=== PATIENT | female | born 1980 | race Caucasian/White ===

== ENCOUNTER 2024-08-29 00:25 | Emergency (ER) | payer MEDICAID, SELFPAY ==
[2024-08-29 00:26] VITALS: BMI 28.3
[2024-08-29 00:46] VITALS: BP 127/85; PULSE 124; RESP 19; TEMP 36.7; O2SAT 97
[2024-08-29] MEDS: DEXAMETHASONE SOD PHOS INJ 10 MG/ML VIAL PO (01:34)
--- NOTE | 2024-08-29 03:42 | EDNOTE_ITS ---
ED Asthma RME/HPI General Chief Complaint: Shortness of Breath/Dyspnea Stated Complaint: COUGHING, SOB Time Seen by Provider: 08/29/24 01:12 Arrival date/time: 08/29/24 00:25 43F with history of asthma and drug use presents to ED with 1 day of cough and SOB because she ran out of her inhaler. Limitations: no limitations Related Data Home Medications ?Medication ?Instructions ?Recorded ?Confirmed albuterol sulfate 90 mcg/actuation 2 puff inhalation Q6H PRN 12/23/19 02/09/22 aerosol inhaler Shortness Of Breath Previous Rx's ?Medication ?Instructions ?Recorded cyclobenzaprine 10 mg tablet 10 mg PO Q8H #20 tabs 12/23/19 oxycodone-acetaminophen 5 mg-325 1 tab PO TID PRN pain #20 tabs 02/10/21 mg tablet (Percocet) sulfamethoxazole 800 1 tab PO BID #14 tabs 02/10/21 mg-trimethoprim 160 mg tablet (Bactrim DS) hydrocodone 5 mg-acetaminophen 325 1 tab PO BID PRN pain #10 tabs 02/14/21 mg tablet naproxen 500 mg tablet (Naprosyn) 500 mg PO BID PRN pain #30 tabs 11/13/21 doxycycline hyclate 150 mg tablet 150 mg PO BID #20 tabs 08/05/22 albuterol sulfate 90 mcg/actuation 2 puff inhalation Q6H PRN 08/29/24 aerosol inhaler (Ventolin HFA) shortness of breath or wheezing #8.5 grams prednisone 20 mg tablet 20 mg PO BID 3 days #6 tabs 08/29/24 Allergies Allergy/AdvReac Type Severity Reaction Status Date / Time No Known Allergies Allergy Verified 02/08/22 20:38 Review of Systems Review of Systems Systems Reviewed: All systems reviewed, normal except as documented Constitutional Constitutional: Reports system reviewed and no additional complaints, except as documented, Denies fever(s) and Denies headache(s) ENT Ears, Nose, Mouth, and Throat: Denies disequilibrium and Denies headache(s) Cardiovascular Cardiovascular: Reports system reviewed and no additional complaints, except as documented, Denies chest pain and Reports dyspnea Respiratory Respiratory: Reports system reviewed and no additional complaints, except as documented, Reports as per HPI, Reports cough and Reports dyspnea Gastrointestinal Gastrointestinal: Reports system reviewed and no additional complaints, except as documented, Denies abdominal pain, Denies nausea and Denies vomiting Neurologic Neurologic: Reports system reviewed and no additional complaints, except as documented, Denies confusion, Denies disequilibrium and Denies headache(s) Psychiatric Psychiatric: Denies confusion Past Medical History Past Medical History CARDIAC: Negative Cardiac Disorders or Congestive Heart Failure RESPIRATORY: Positive Asthma; Negative Chronic Obstructive Pulmonary Disease (COPD) GENITOURINARY: Negative Renal Disease ENDOCRINE: Negative Diabetes Mellitus Type 1 or Diabetes Mellitus Type 2 HEMATOLOGIC: Negative Sickle Cell Disease Surgical History SURGICAL: Positive Section Social History SMOKING STATUS: Current every day smoker ED Exam General Limitations: Present no limitations General appearance: Present alert and in no apparent distress Head Head exam: Present atraumatic Eye Eye exam: Present normal appearance, PERRL and EOMI ENT ENT exam: Present normal exam, normal oropharynx and mucous membranes moist Neck Neck exam: Present normal inspection, full ROM and trachea midline Chest Chest inspection: Present normal inspection and symmetric chest wall rise Respiratory Respiratory exam: Present prolonged expiratory phase Cardiovascular Cardiovascular exam: Present regular rate, normal rhythm and normal heart sounds Abdominal Exam Abdominal exam: Present soft and normal bowel sounds Extremities Exam Extremities exam: Present normal inspection and full ROM Back Exam Back exam: Present normal inspection and full ROM Neurological Exam Neurological exam: Present alert, oriented X3 and CN II-XII intact Psychiatric Psychiatric exam: Present normal affect and normal mood Skin Skin exam: Present warm, dry, intact and normal color Course Quality Measures none Orders Category Date Time Status Bedside COVID-19 Antigen Test NOW Care 08/29/24 00:26 Completed Bedside Influenza A&B Antigen Test NOW Care 08/29/24 00:26 Completed Dexamethasone Inj [Decadron Inj] Med 08/29/24 01:13 Discontinued 10 mg PO X1 ONE Vital Signs Vital signs: Vital Signs Temperature 98.1 F 08/29/24 00:46 Pulse Rate 124 H 08/29/24 00:46 Respiratory Rate 19 08/29/24 00:46 Blood Pressure 127/85 H 08/29/24 00:46 Pulse Oximetry (%) 97 08/29/24 00:46 Oxygen Delivery Method Room Air 08/29/24 00:46 Asthma MDM Narrative MDM Narrative:: 43F with history of asthma and drug use presents to ED with 1 day of cough and SOB because she ran out of her inhaler. Physical exam reveals clear ENT, but restricted lung airflow. No wheezing. Patient is afebrile, calm, and alert. Steroids relieved symptoms. Meds/inhaler prescribed. Patient data External records reviewed:: [facility] Clinical information provided by:: patient Social determinants that could affect healthcare access:: substance use Patient has the following chronic illnesses:: drug use How is presenting disease/condition affected by chronic disease/condition?: caused by Evaluation data The following diagnostics were reviewed and interpreted by me:: other (specify) (none) Lab and/or radiology exams considered but not ordered:: not ordered Interpretation Summary: n/a Medications / Prescriptions Medications or Prescriptions considered but not ordered:: ordered Medication administrations:: Medication Administration History Discontinued Medications Dexamethasone Sodium Phosphate (Dexamethasone Sod Phos Inj 10 Mg/Ml Vial) 10 mg PO X1 ONE Stop: 08/29/24 01:14 Last Admin: 08/29/24 01:34 Dose: 10 mg Documented By: CVL Consultations Consultation(s) initiated? (list below): No Diagnosis Differential diagnosis asthma: Acute exacerbation, Status asthmaticus, Acute asthmatic bronchitis, PE, Pneumonia, COPD exacerbation, Pulmonary edema systolic, Pulmonary edema dystolic, ARDS, Pneumothorax and Foreign body in trachea Most likely diagnosis given after review of the tests above:: asthma exacerbation Admission Indicated Admission indicated?: not indicated Admission Request Was there a request for admission?: No Disposition Plan Disposition Plan: Discharge Discharge Attestation Discharge Attestation: The patient and all family members were given an opportunity to ask questions and understood the discharge instructions. Discharge instructions specifically effects, indications for sooner follow up or return to the emergency department, and the expected course of current diagnosis. Patient condition: Stable Discharge Plan Plan Patient Disposition: HOME (Self Care) Disposition Comment: Stable Prescriptions/Referrals Prescriptions/Med Rec: New prednisone 20 mg tablet 20 mg PO BID 3 Days Qty: 6 0RF albuterol sulfate [Ventolin HFA] 90 mcg/actuation HFA aerosol inhaler 2 puff inhalation Q6H PRN (Reason: shortness of breath or wheezing) Qty: 8.5 3RF No Action albuterol sulfate 90 mcg/actuation HFA aerosol inhaler 2 puff IH Q6H PRN (Reason: Shortness Of Breath) Patient Comments: not taking cyclobenzaprine 10 mg tablet 10 mg PO Q8H Qty: 20 0RF Patient Comments: not taking oxycodone-acetaminophen [Percocet] 5-325 mg tablet 1 tab PO TID MDD 4 g APAP PRN (Reason: pain) Qty: 20 0RF Patient Comments: not taking sulfamethoxazole-trimethoprim [Bactrim DS] 800-160 mg tablet 1 tab PO BID Qty: 14 0RF Patient Comments: not taking hydrocodone-acetaminophen 5-325 mg tablet 1 tab PO BID MDD 10 PRN (Reason: pain) Qty: 10 0RF Patient Comments: not taking naproxen [Naprosyn] 500 mg tablet 500 mg PO BID PRN (Reason: pain) Qty: 30 0RF Patient Comments: not taking doxycycline hyclate 150 mg tablet 150 mg PO BID Qty: 20 0RF Referrals: Candice Short FNP [Primary Care Provider] - In 1 week Problem List Clinical Impression: Asthma with exacerbation Patient/Caregiver Discharge Instructions Additional Instructions: Please follow-up with PCP within 24-48 hours and return immediately if symptoms worsen. Print Language: Lithuanian Stand Alone Forms: Patient Portal Info Letter ROBBY/MARION Supervising Physician ROBBY/MARION Supervising Physician: Dr. Chacon
[2024-08-29 03:43] VITALS: BP 110/65; PULSE 88; RESP 18; TEMP 36.4; O2SAT 97
== END 2024-08-29 03:43 | disposition home or self-care (01) ==
PROVIDERS: Emergency Provider Emergency Medicine; PCP Nurse Practitioner Family
DX: J45.901 Unspecified asthma with (acute) exacerbation (principal); F17.210 Nicotine dependence, cigarettes, uncomplicated
CPT/HCPCS: 87400; 87811; 99283; J1100

== ENCOUNTER 2025-04-28 17:40 | Emergency (ER) | payer MEDICAID, SELFPAY ==
[2025-04-28 17:42] VITALS: BMI 30.2
--- NOTE | 2025-04-28 18:36 | PD.EDFMALE ---
ED Female Urogenital RME/HPI General Chief complaint: Urogenital-Female Stated complaint: BARTHOLIN CYST IN VAGINAL AREA, SINCE YESTERDAY Time Seen by Provider: 04/28/25 18:32 Arrival date/time: 04/28/25 17:40 RME / HPI RME / HPI Narrative: 44-year-old female patient came in for evaluation regarding possible Bartholin cyst abscess. Patient is have a history of Bartholin cyst abscess in the past, at this time according to her, this time has been ongoing for the last 2 to 3 days, initially mild getting worse, with swelling and discomfort. Denies any fever denies any other complaints. No medications taken prior to arrival. Related Data Home Medications ?Medication ?Instructions ?Recorded ?Confirmed albuterol sulfate 90 mcg/actuation 2 puff inhalation Q6H PRN 12/23/19 02/09/22 aerosol inhaler Shortness Of Breath Previous Rx's ?Medication ?Instructions ?Recorded cyclobenzaprine 10 mg tablet 10 mg PO Q8H #20 tabs 12/23/19 oxycodone-acetaminophen 5 mg-325 1 tab PO TID PRN pain #20 tabs 02/10/21 mg tablet (Percocet) sulfamethoxazole 800 1 tab PO BID #14 tabs 02/10/21 mg-trimethoprim 160 mg tablet (Bactrim DS) hydrocodone 5 mg-acetaminophen 325 1 tab PO BID PRN pain #10 tabs 02/14/21 mg tablet naproxen 500 mg tablet (Naprosyn) 500 mg PO BID PRN pain #30 tabs 11/13/21 doxycycline hyclate 150 mg tablet 150 mg PO BID #20 tabs 08/05/22 albuterol sulfate 90 mcg/actuation 2 puff inhalation Q6H PRN 08/29/24 aerosol inhaler (Ventolin HFA) shortness of breath or wheezing #8.5 grams albuterol sulfate 90 mcg/actuation 2 puff inhalation Q6H PRN 08/29/24 aerosol inhaler (Ventolin HFA) shortness of breath or wheezing #8.5 grams acetaminophen 300 mg-codeine 30 mg 1 tab PO TID PRN pain #20 tabs 04/28/25 tablet doxycycline monohydrate 100 mg 100 mg PO BID #20 caps 04/28/25 capsule fluconazole 150 mg tablet 150 mg PO Q3D 3 doses #3 tabs 04/28/25 Allergies Allergy/AdvReac Type Severity Reaction Status Date / Time No Known Allergies Allergy Verified 04/28/25 17:43 Review of Systems Review of Systems Narrative Review of Systems: Review of system reviewed and within normal limits except mentioned in HPI ED Exam Narrative Physical exam: VITAL SIGNS: Reviewed. GENERAL APPEARANCE: Alert and interactive, follows commands, no acute distress, HEAD AND FACE: Non-traumatic. ENT: PERRL, pink conjunctivitis, eyelid no trauma, Mucous membrane moist. NECK: Supple, nontender, no nuchal rigidity. CHEST: No tenderness, no crepitus, no paradoxical movement, no retractions. LUNGS: Clear, well ventilated, symmetric, no rales, no wheezing, no ronchi, no stridor, good breath sounds bilaterally. HEART: Regular rate, regular rhythm, no murmur, no gallops. ABDOMEN: Soft, positive bowel sounds, nondistended, no guarding, nontender, no rebound, no masses, RECTAL: Deferred. GENITAL: 3 x 3 cm swelling, redness, fluctuant, right inferior wall of the vagina, with tenderness NEUROLOGICAL: Gross motor function intact sensory function intact, Appropriate for age. MUSCULOSKELETAL: low back nontender, full range of motion. EXTREMITIES: Nontender, full range of motion. SKIN: Color pink, dry, no rash, no lacerations, no abrasions, no contusions. LYMPHATICS: Deferred. Course Quality Measures none Orders Category Date Time Status Set Up Suture Tray STAT Care 04/28/25 18:35 Active Doxycycline [Vibramycin] Med 04/28/25 18:35 Discontinued 100 mg PO X1 ONE Ketorolac Inj [Toradol Inj] Med 04/28/25 18:35 Discontinued 30 mg IM X1 ONE Lidocaine 1% 20 ml [Xylocaine 1% 20 ML] Med 04/28/25 18:35 Discontinued 20 ml INFL X1 ONE Vital Signs Vital signs: Vital Signs Temperature 98.4 F 04/28/25 19:22 Pulse Rate 81 04/28/25 19:22 Respiratory Rate 15 04/28/25 19:22 Blood Pressure 114/67 04/28/25 19:22 Pulse Oximetry (%) 99 04/28/25 19:22 Oxygen Delivery Method Room Air 04/28/25 19:22 Urogenital - Female MDM Narrative MDM Narrative:: 44-year-old female patient came in for evaluation regarding possible Bartholin cyst abscess. Patient is have a history of Bartholin cyst abscess in the past, at this time according to her, this time has been ongoing for the last 2 to 3 days, initially mild getting worse, with swelling and discomfort. Denies any fever denies any other complaints. No medications taken prior to arrival. Incision and drainage was done by me see procedure notes Patient was given doxycycline, Toradol Was advised to follow-up closely with [facility] Patient data External records reviewed:: None Clinical information provided by:: patient Social determinants that could affect healthcare access:: none Patient has the following chronic illnesses:: none How is presenting disease/condition affected by chronic disease/condition?: no chronic disease Evaluation data The following diagnostics were reviewed and interpreted by me:: lab results and other (specify) Lab and/or radiology exams considered but not ordered:: None Interpretation Summary: None Medications / Prescriptions Medications or Prescriptions considered but not ordered:: None Medication administrations:: Medication Administration History Discontinued Medications Doxycycline Hyclate (Doxycycline 100 Mg Tablet) 100 mg PO X1 ONE Stop: 04/28/25 18:36 Last Admin: 04/28/25 19:36 Dose: 100 mg Documented By: EF Ketorolac Tromethamine (Ketorolac Inj 60 Mg/2 Ml Vial) 30 mg IM X1 ONE Stop: 04/28/25 18:36 Last Admin: 04/28/25 19:36 Dose: 30 mg Documented By: EF Lidocaine HCl (Lidocaine Hcl 1% 20 Ml Vial) 20 ml INFL X1 ONE Stop: 04/28/25 18:36 Toradol, Doxy, Consultations Consultation(s) initiated? (list below): No Diagnosis Urogenital Female Differential Diagnosis: urinary tract infection and bacterial vaginosis Most likely diagnosis given after review of the tests above:: Infection of the Bartholin cyst, Bartholin cyst abscess Admission Indicated Admission indicated?: not indicated Admission Request Was there a request for admission?: No Disposition Plan Disposition Plan: Discharge Discharge Attestation Discharge Attestation: The patient was given an opportunity to ask questions and understood the discharge instructions. Discharge instructions specifically effects, indications for sooner follow up or return to the emergency department, and the expected course of current diagnosis. Patient condition: Stable Discharge Plan Plan Patient Disposition: HOME (Self Care) Discharge Disposition comment: Stable Prescriptions/Referrals Prescriptions/Med Rec: New doxycycline monohydrate 100 mg capsule 100 mg PO BID Qty: 20 0RF fluconazole 150 mg tablet 150 mg PO Q3D Qty: 3 0RF Rx Instructions: may repeat second dose 72 hrs after first dose if symptoms persist acetaminophen-codeine 300-30 mg tablet 1 tab PO TID PRN (Reason: pain) Qty: 20 0RF No Action albuterol sulfate 90 mcg/actuation HFA aerosol inhaler 2 puff IH Q6H PRN (Reason: Shortness Of Breath) Patient Comments: not taking cyclobenzaprine 10 mg tablet 10 mg PO Q8H Qty: 20 0RF Patient Comments: not taking oxycodone-acetaminophen [Percocet] 5-325 mg tablet 1 tab PO TID MDD 4 g APAP PRN (Reason: pain) Qty: 20 0RF Patient Comments: not taking sulfamethoxazole-trimethoprim [Bactrim DS] 800-160 mg tablet 1 tab PO BID Qty: 14 0RF Patient Comments: not taking hydrocodone-acetaminophen 5-325 mg tablet 1 tab PO BID MDD 10 PRN (Reason: pain) Qty: 10 0RF Patient Comments: not taking naproxen [Naprosyn] 500 mg tablet 500 mg PO BID PRN (Reason: pain) Qty: 30 0RF Patient Comments: not taking doxycycline hyclate 150 mg tablet 150 mg PO BID Qty: 20 0RF albuterol sulfate [Ventolin HFA] 90 mcg/actuation HFA aerosol inhaler 2 puff inhalation Q6H PRN (Reason: shortness of breath or wheezing) Qty: 8.5 3RF albuterol sulfate [Ventolin HFA] 90 mcg/actuation HFA aerosol inhaler 2 puff inhalation Q6H PRN (Reason: shortness of breath or wheezing) Qty: 8.5 0RF Referrals: No Primary/Family,Physician [Primary Care Provider] - In 1 week Problem List Clinical Impression: Infected cyst of Bartholin gland duct Patient/Caregiver Discharge Instructions Discharge Activity: activity as tolerated Education Materials: ED Bartholins Cyst IandD Additional Instructions: Thank you for the opportunity for serving you today. You are stable for discharged . You are advised to: Follow-up with your PCP in 1 to 2 days and as per referral to [facility] Return to ED for worsening of symptoms Increase oral fluids Take medication as prescribed Print Language: Pashto Stand Alone Forms: [employer] Info., Patient Portal Info Letter PA/INTERNAL REVENUE AGENT Supervising Physician PA/INTERNAL REVENUE AGENT Supervising Physician: MD Jenny
[2025-04-28 19:22] VITALS: BP 114/67; PULSE 81; RESP 15; TEMP 36.9; O2SAT 99
[2025-04-28] MEDS: DOXYCYCLINE 100 MG TABLET PO (19:36)
[2025-04-28] MEDS: KETOROLAC INJ 60 MG/2 ML VIAL 30 MG IM (19:36)
[2025-04-28] MEDS: LIDOCAINE HCL 1% 20 ML VIAL INFL (20:11)
--- NOTE | 2025-05-18 11:25 | PD.EDADDENDU ---
Emergency Room Addendum Addendum Narrative: Abscess area prep and drape aseptically Local infiltration with lidocaine 1% without EPI around the abscess 1 cm incision directed over the abscess Loculation freed using allan forceps Abscess squeeze out Iodoform packing Patient tolerated the procedure well Sterile dressing done
== END 2025-04-28 20:17 | disposition home or self-care (01) ==
PROVIDERS: Emergency Provider Emergency Medicine
DX: N75.0 Cyst of Bartholin's gland (principal)
CPT/HCPCS: 56420; 96372; 99283; J1885; J3490; A9270

== ENCOUNTER 2025-04-29 19:47 | Emergency (ER) | payer MEDICAID, SELFPAY ==
[2025-04-29 19:48] VITALS: BP 108/74; PULSE 87; RESP 20; TEMP 37; O2SAT 100
[2025-04-29 19:50] VITALS: BMI 25.0
--- NOTE | 2025-04-29 20:24 | PD.EDSKIN ---
ED Skin Abcess FB-RME/HPI General Chief complaint: Skin/Abscess/Foreign Body Stated complaint: BARTHOLIN SCYST Time Seen by Provider: 04/29/25 20:23 Arrival date/time: 04/29/25 19:47 RME / HPI RME / HPI narrative: 44-year-old female patient came in for evaluation regarding request for repacking of her abscess sp I and D. Patient was seen yesterday for Bartholin cyst abscess, incision and drainage was done, and packing was done earlier today the packing fell off. Patient told me that patient is still having swelling. Denies any fever. Currently taking doxycycline. Related Data Home Medications ?Medication ?Instructions ?Recorded ?Confirmed albuterol sulfate 90 mcg/actuation 2 puff inhalation Q6H PRN 12/23/19 02/09/22 aerosol inhaler Shortness Of Breath Previous Rx's ?Medication ?Instructions ?Recorded cyclobenzaprine 10 mg tablet 10 mg PO Q8H #20 tabs 12/23/19 oxycodone-acetaminophen 5 mg-325 1 tab PO TID PRN pain #20 tabs 02/10/21 mg tablet (Percocet) sulfamethoxazole 800 1 tab PO BID #14 tabs 02/10/21 mg-trimethoprim 160 mg tablet (Bactrim DS) hydrocodone 5 mg-acetaminophen 325 1 tab PO BID PRN pain #10 tabs 02/14/21 mg tablet naproxen 500 mg tablet (Naprosyn) 500 mg PO BID PRN pain #30 tabs 11/13/21 doxycycline hyclate 150 mg tablet 150 mg PO BID #20 tabs 08/05/22 albuterol sulfate 90 mcg/actuation 2 puff inhalation Q6H PRN 08/29/24 aerosol inhaler (Ventolin HFA) shortness of breath or wheezing #8.5 grams albuterol sulfate 90 mcg/actuation 2 puff inhalation Q6H PRN 08/29/24 aerosol inhaler (Ventolin HFA) shortness of breath or wheezing #8.5 grams acetaminophen 300 mg-codeine 30 mg 1 tab PO TID PRN pain #20 tabs 04/28/25 tablet doxycycline monohydrate 100 mg 100 mg PO BID #20 caps 04/28/25 capsule fluconazole 150 mg tablet 150 mg PO Q3D 3 doses #3 tabs 04/28/25 Allergies Allergy/AdvReac Type Severity Reaction Status Date / Time No Known Allergies Allergy Verified 04/28/25 17:43 Review of Systems Review of Systems Narrative Review of Systems: Review of system reviewed and within normal limits except mentioned in HPI ED Exam Narrative Physical exam: VITAL SIGNS: Reviewed. GENERAL APPEARANCE: Alert and interactive, follows commands, no acute distress, HEAD AND FACE: Non-traumatic. ENT: PERRL, pink conjunctivitis, eyelid no trauma, Mucous membrane moist. NECK: Supple, nontender, no nuchal rigidity. CHEST: No tenderness, no crepitus, no paradoxical movement, no retractions. LUNGS: Clear, well ventilated, symmetric, no rales, no wheezing, no ronchi, no stridor, good breath sounds bilaterally. HEART: Regular rate, regular rhythm, no murmur, no gallops. ABDOMEN: Soft, positive bowel sounds, nondistended, no guarding, nontender, no rebound, no masses, RECTAL: Deferred. GENITAL: Status post I&D, right inferior vaginal wall with mild swelling NEUROLOGICAL: Gross motor function intact sensory function intact, Appropriate for age. MUSCULOSKELETAL: low back nontender, full range of motion. EXTREMITIES: Nontender, full range of motion. SKIN: Color pink, dry, no rash, no lacerations, no abrasions, no contusions. LYMPHATICS: Deferred. Course Quality Measures none Orders Category Date Time Status Set Up Suture Tray STAT Care 04/29/25 20:30 Active Ketorolac Inj [Toradol Inj] Med 04/29/25 20:30 Discontinued 30 mg IM X1 ONE Lidocaine 1% 20 ml [Xylocaine 1% 20 ML] Med 04/29/25 20:45 Discontinued 20 ml INFL X1 ONE Vital Signs Vital signs: Vital Signs Temperature 98.6 F 04/29/25 19:48 Pulse Rate 87 04/29/25 19:48 Respiratory Rate 20 04/29/25 19:48 Blood Pressure 108/74 04/29/25 19:48 Pulse Oximetry (%) 100 04/29/25 19:48 Oxygen Delivery Method Room Air 04/29/25 19:48 Skin / Abscess / Foreign Body MDM Narrative MDM Narrative:: 44-year-old female patient came in for evaluation regarding request for repacking of her abscess sp I and D. Patient was seen yesterday for Bartholin cyst abscess, incision and drainage was done, and packing was done earlier today the packing fell off. Patient told me that patient is still having swelling. Denies any fever. Currently taking doxycycline. Wound check was done by me and repacking was done by me using plain iodoform packing. Patient tolerated the procedure well. Patient data External records reviewed:: None Clinical information provided by:: patient Social determinants that could affect healthcare access:: none Patient has the following chronic illnesses:: None How is presenting disease/condition affected by chronic disease/condition?: no chronic disease Evaluation data The following diagnostics were reviewed and interpreted by me:: other (specify) Lab and/or radiology exams considered but not ordered:: None Interpretation Summary: None Medications / Prescriptions Medications or Prescriptions considered but not ordered:: None Medication administrations:: Medication Administration History Discontinued Medications Ketorolac Tromethamine (Ketorolac Inj 60 Mg/2 Ml Vial) 30 mg IM X1 ONE Stop: 04/29/25 20:31 Lidocaine HCl (Lidocaine Hcl 1% 20 Ml Vial) 20 ml INFL X1 ONE Stop: 04/29/25 20:46 Toradol IM Consultations Consultation(s) initiated? (list below): No Diagnosis Skin/Abscess Differential Diagnosis: other (Wound check, status post I&D Bartholin cyst abscess, repacking wound) Most likely diagnosis given after review of the tests above:: Wound check, status post I&D Bartholin cyst abscess, repacking wound Admission Indicated Admission indicated?: not indicated Explain why admission is indicated or not indicated:: Discharge Admission Request Was there a request for admission?: No Disposition Plan Disposition Plan: Discharge Discharge Attestation Discharge Attestation: The patient given an opportunity to ask questions and understood the discharge instructions. Discharge instructions specifically effects, indications for sooner follow up or return to the emergency department, and the expected course of current diagnosis. Patient condition: Stable Discharge Plan Plan Patient Disposition: HOME (Self Care) Discharge Disposition comment: Stable Prescriptions/Referrals Prescriptions/Med Rec: No Action albuterol sulfate 90 mcg/actuation HFA aerosol inhaler 2 puff IH Q6H PRN (Reason: Shortness Of Breath) Patient Comments: not taking cyclobenzaprine 10 mg tablet 10 mg PO Q8H Qty: 20 0RF Patient Comments: not taking oxycodone-acetaminophen [Percocet] 5-325 mg tablet 1 tab PO TID MDD 4 g APAP PRN (Reason: pain) Qty: 20 0RF Patient Comments: not taking sulfamethoxazole-trimethoprim [Bactrim DS] 800-160 mg tablet 1 tab PO BID Qty: 14 0RF Patient Comments: not taking hydrocodone-acetaminophen 5-325 mg tablet 1 tab PO BID MDD 10 PRN (Reason: pain) Qty: 10 0RF Patient Comments: not taking naproxen [Naprosyn] 500 mg tablet 500 mg PO BID PRN (Reason: pain) Qty: 30 0RF Patient Comments: not taking doxycycline monohydrate 100 mg capsule 100 mg PO BID Qty: 20 0RF fluconazole 150 mg tablet 150 mg PO Q3D Qty: 3 0RF Rx Instructions: may repeat second dose 72 hrs after first dose if symptoms persist acetaminophen-codeine 300-30 mg tablet 1 tab PO TID PRN (Reason: pain) Qty: 20 0RF doxycycline hyclate 150 mg tablet 150 mg PO BID Qty: 20 0RF albuterol sulfate [Ventolin HFA] 90 mcg/actuation HFA aerosol inhaler 2 puff inhalation Q6H PRN (Reason: shortness of breath or wheezing) Qty: 8.5 3RF albuterol sulfate [Ventolin HFA] 90 mcg/actuation HFA aerosol inhaler 2 puff inhalation Q6H PRN (Reason: shortness of breath or wheezing) Qty: 8.5 0RF Referrals: No Primary/Family,Physician [Primary Care Provider] - In 1 week Problem List Clinical Impression: Wound check, abscess, Infected cyst of Bartholin gland duct Patient/Caregiver Discharge Instructions Discharge Activity: activity as tolerated Education Materials: ED Wound Check (Infection) Additional Instructions: Thank you for the opportunity for serving you today. You are stable for discharged . You are advised to: Follow-up with your WEB COMMUNICATIONS SPECIALIST as instructed Return to ED for worsening of symptoms Increase oral fluids Take medication as prescribed yesterday Mobilized the packing by pulling 1 cm every day for the next 5 days and totally remove after that Print Language: Rw[place]an Stand Alone Forms: Andreea Award Info., Patient Portal Info Letter PA/STEEL ANALYST Supervising Physician PA/STEEL ANALYST Supervising Physician: MD Jenny
[2025-04-29] MEDS: LIDOCAINE HCL 1% 20 ML VIAL INFL (22:12)
[2025-04-29] MEDS: KETOROLAC INJ 60 MG/2 ML VIAL 30 MG IM (22:12)
== END 2025-04-29 22:43 | disposition home or self-care (01) ==
PROVIDERS: Emergency Provider Emergency Medicine
DX: N75.0 Cyst of Bartholin's gland (principal)
CPT/HCPCS: 96372; 99283; J1885; J3490

== ENCOUNTER 2025-09-14 21:52 | Emergency (ER) | payer MEDICAID, SELFPAY ==
[2025-09-14 21:54] VITALS: BMI 30.4
[2025-09-14 23:20] VITALS: BP 121/83; PULSE 92; RESP 20; TEMP 36.7; O2SAT 98
--- NOTE | 2025-09-15 00:01 | EDNOTE_ITS ---
ED Skin Abcess FB-RME/HPI General Chief complaint: Skin/Abscess/Foreign Body Stated complaint: CYST Time Seen by Provider: 09/14/25 23:31 Arrival date/time: 09/14/25 21:52 44-year-old female reports with complaints of Bartholin gland cyst x 2 days. Patient states that she was evaluated by primary care provider who advised her that they do not harmony Bartholin gland cyst and she does not have an TRANSPORTATION SALES CONSULTANT so she reports the emergency room with pain and swelling. Patient denies any fever or chills nausea or vomiting. Patient states that she has tried [id number] medications with no improvement of pain Limitations: no limitations Related Data Home Medications ?Medication ?Instructions ?Recorded ?Confirmed albuterol sulfate 90 mcg/actuation 2 puff inhalation Q 6H PRN 12/23/19 02/09/22 aerosol inhaler Shortness Of Breath Previous Rx's ?Medication ?Instructions ?Recorded cyclobenzaprine 10 mg tablet 10 mg PO Q8H #20 tabs 10/01 oxycodone-acetaminophen 5 mg-325 1 tab PO TID PRN pain #20 tabs 02/10/21 mg tablet (Percocet) sulfamethoxazole 800 1 tab PO BID #14 tabs mg-trimethoprim 160 mg tablet (Bactrim DS) hydrocodone 5 mg-acetaminophen 325 1 tab PO BID PRN pa in #10 tabs 02/14/21 mg tablet naproxen 500 mg tablet (Naprosyn) 500 mg PO BID PRN pa in #30 tabs 11/13/21 doxycycline hyclate 150 mg tablet 150 mg PO BID #20 ta bs 08/05/22 albuterol sulfate 90 mcg/actuation 2 puff inhalation Q 6H PRN 08/29/24 aerosol inhaler (Ventolin HFA) shortness of breath or wheezing #8.5 grams albuterol sulfate 90 mcg/actuation 2 puff inhalation Q 6H PRN 08/29/24 aerosol inhaler (Ventolin HFA) shortness of breath or wheezing #8.5 grams acetaminophen 300 mg-codeine 30 mg 1 tab PO TID PRN pa in #20 tabs 04/28/25 tablet doxycycline monohydrate 100 mg 100 mg PO BID #20 caps 04/28/25 capsule fluconazole 150 mg tablet 150 mg PO Q3D 3 doses #3 tab s 04/28/25 cephalexin 500 mg tablet 500 mg PO Q12H 10 days #20 t abs 09/15/25 fluconazole 150 mg tablet 150 mg PO Q3D 2 doses #2 tab s 09/15/25 oxycodone-acetaminophen 5 mg-325 1 tab PO TID PRN pain #15 tabs 09/15/25 mg tablet (Percocet) Allergies Allergy/AdvReac Type Severity Reaction Status Date / Time No Known Allergies Allergy Verified 09/14/25 21:53 Review of Systems Constitutional Constitutional: Denies chills and Denies fever(s) Genitourinary Genitourinary: Reports other (Bartholin gland cyst) Integumentary/Breasts Skin/Breast: Reports erythema and Reports furuncle Past Medical History Past Medical History CARDIAC: Negative Cardiac Disorders or Congestive Heart Failure RESPIRATORY: Positive Asthma; Negative Chronic Obstructive Pulmonary Disease (COPD) GENITOURINARY: Negative Renal Disease ENDOCRINE: Negative Diabetes Mellitus Type 1 or Diabetes Mellitus Type 2 HEMATOLOGIC: Negative Sickle Cell Disease Surgical History SURGICAL: Positive Section Social History SMOKING STATUS: Current every day smoker ED Exam General Limitations: Present no limitations General appearance: Present alert and in no apparent distress External exam: Present other (3 cm nonfluctuant Bartholin gland cyst right labia diffuse erythema and tenderness no discharge) Neurological Exam Neurological exam: Present alert, oriented X3 and CN II-XII intact Psychiatric Psychiatric exam: Present normal affect and normal mood Skin Skin exam: Present warm, dry, intact and normal color Course Quality Measures none Orders Category Date Time Status 1000 mg IM Med 09/15/25 00:01 Ordered cefTRIAXone [Rocephin] 1,000 mg Lidocaine 1% Pf Vial 5ml [Xylocaine 1% 5 ml] 2.1 ml IM X1 Morphine* Inj Med 09/15/25 00:00 Once 2 mg IM X1 ONE Promethazine Inj [Phenergan Inj] Med 09/15/25 00:00 Once 12.5 mg IM X1 ONE Vital Signs Vital signs: Vital Signs Temperature 98.0 F 09/14/25 23:20 Pulse Rate 92 09/14/25 23:20 Respiratory Rate 20 09/14/25 23:20 Blood Pressure 121/83 09/14/25 23:20 Pulse Oximetry (%) 98 09/14/25 23:20 Oxygen Delivery Method Room Air 09/14/25 23:20 Skin / Abscess / Foreign Body Patient data External records reviewed:: None Clinical information provided by:: patient Social determinants that could affect healthcare access:: none Patient has the following chronic illnesses:: none How is presenting disease/condition affected by chronic disease/condition?: no chronic disease Evaluation data The following diagnostics were reviewed and interpreted by me:: other (specify) (none) Lab and/or radiology exams considered but not ordered:: none Interpretation Summary: n/a Medications / Prescriptions Medications or Prescriptions considered but not ordered:: none Medication administrations:: Rocephin morphine and Phenergan Consultations Consultation(s) initiated? (list below): No Diagnosis Skin/Abscess Differential Diagnosis: abscess of skin or subcutaneous tissue, cellulitis, contact dermatitis and other (Bartholin gland cyst) Most likely diagnosis given after review of the tests above:: Bartholin gland cyst Admission Indicated Admission indicated?: not indicated Admission Request Was there a request for admission?: No Disposition Plan Disposition Plan: Discharge Discharge Attestation Discharge Attestation: The patient and all family members were given an opportunity to ask questions and understood the discharge instructions. Discharge instructions specifically effects, indications for sooner follow up or return to the emergency department, and the expected course of current diagnosis. Patient condition: Stable Discharge Plan Plan Patient Disposition: HOME (Self Care) Prescriptions/Referrals Prescriptions/Med Rec: New oxycodone-acetaminophen [Percocet] 5-325 mg tablet 1 tab PO TID MDD 4g APAP PRN (Reason: pain) Qty: 15 0RF fluconazole 150 mg tablet 150 mg PO Q3D Qty: 2 0RF Rx Instructions: may repeat second dose 72 hrs after first dose if symptoms persist cephalexin 500 mg tablet 500 mg PO Q12H 10 Days Qty: 20 0RF No Action albuterol sulfate 90 mcg/actuation HFA aerosol inhaler 2 puff IH Q6H PRN (Reason: Shortness Of Breath) Patient Comments: not taking cyclobenzaprine 10 mg tablet 10 mg PO Q8H Qty: 20 0RF Patient Comments: not taking oxycodone-acetaminophen [Percocet] 5-325 mg tablet 1 tab PO TID MDD 4 g APAP PRN (Reason: pain) Qty: 20 0RF Patient Comments: not taking sulfamethoxazole-trimethoprim [Bactrim DS] 800-160 mg tablet 1 tab PO BID Qty: 14 0RF Patient Comments: not taking hydrocodone-acetaminophen 5-325 mg tablet 1 tab PO BID MDD 10 PRN (Reason: pain) Qty: 10 0RF Patient Comments: not taking naproxen [Naprosyn] 500 mg tablet 500 mg PO BID PRN (Reason: pain) Qty: 30 0RF Patient Comments: not taking doxycycline monohydrate 100 mg capsule 100 mg PO BID Qty: 20 0RF fluconazole 150 mg tablet 150 mg PO Q3D Qty: 3 0RF Rx Instructions: may repeat second dose 72 hrs after first dose if symptoms persist acetaminophen-codeine 300-30 mg tablet 1 tab PO TID PRN (Reason: pain) Qty: 20 0RF doxycycline hyclate 150 mg tablet 150 mg PO BID Qty: 20 0RF albuterol sulfate [Ventolin HFA] 90 mcg/actuation HFA aerosol inhaler 2 puff inhalation Q6H PRN (Reason: shortness of breath or wheezing) Qty: 8.5 3RF albuterol sulfate [Ventolin HFA] 90 mcg/actuation HFA aerosol inhaler 2 puff inhalation Q6H PRN (Reason: shortness of breath or wheezing) Qty: 8.5 0RF Referrals: Helena Madrigal DO [Physician, TRANSPORTATION SALES CONSULTANT] - 09/16/25 Problem List Clinical Impression: Bartholin gland cyst Patient/Caregiver Discharge Instructions Discharge Activity: activity as tolerated Education Materials: Bartholin Cyst and Abscess Additional Instructions: Take medications as directed and follow-up with the referred M[employer]Y MARKET CLERK for further evaluation and treatment Print Language: Japanese Stand Alone Forms: Andreea Award Info., Patient Portal Info Letter
[2025-09-15] MEDS: MORPHINE SULF INJ 4 MG/ML VIAL 2 MG IM (00:50)
== END 2025-09-15 00:55 | disposition home or self-care (01) ==
LOC: SERX 09-15 00:59
PROVIDERS: Emergency Provider Emergency Medicine; PCP Family Medicine
DX: N75.0 Cyst of Bartholin's gland (principal)
CPT/HCPCS: 96372; 99282; J0696; J2270; J3490

== ENCOUNTER 2025-09-16 02:47 | Observation (INO) | payer MEDICAID, SELFPAY ==
[2025-09-16] VITALS (15 sets, daily range): BP systolic 86–124; BP diastolic 51–83; PULSE 66–111; RESP 14–19; TEMP 36.3–37.8; O2SAT 94–100; BMI 30.4
[2025-09-16] MEDS: KETOROLAC INJ 60 MG/2 ML VIAL IM (04:41)
[2025-09-16] MEDS: LIDOCAINE HCL 1% 20 ML VIAL INFL (04:42)
--- NOTE | 2025-09-16 04:43 | PC.NURSE ---
Pulled lidocaine from [facility] for provider and he withdrew and administered lido during I&D
--- NOTE | 2025-09-16 05:46 | EDNOTE_ITS ---
ED Female Urogenital RME/HPI General Chief complaint: Skin/Abscess/Foreign Body Stated complaint: CYSTS Time Seen by Provider: 09/16/25 03:52 Arrival date/time: 09/16/25 02:47 44F with history of asthma and drug use and recurrent Bartholin cyst presents to ED with continued worsening pain. Patient was here yesterday where no I&D was done and patient was put on Keflex. Patient is still waiting for insurance approval to be referred to OBGYN. Limitations: no limitations Related Data Home Medications ?Medication ?Instructions ?Recorded ?Confirmed albuterol sulfate 90 mcg/actuation 2 puff inhalation Q 6H PRN 12/23/19 02/09/22 aerosol inhaler Shortness Of Breath Previous Rx's ?Medication ?Instructions ?Recorded cyclobenzaprine 10 mg tablet 10 mg PO Q8H #20 tabs 10/01 oxycodone-acetaminophen 5 mg-325 1 tab PO TID PRN pain #20 tabs 02/10/21 mg tablet (Percocet) sulfamethoxazole 800 1 tab PO BID #14 tabs mg-trimethoprim 160 mg tablet (Bactrim DS) hydrocodone 5 mg-acetaminophen 325 1 tab PO BID PRN pa in #10 tabs 02/14/21 mg tablet naproxen 500 mg tablet (Naprosyn) 500 mg PO BID PRN pa in #30 tabs 11/13/21 doxycycline hyclate 150 mg tablet 150 mg PO BID #20 ta bs 08/05/22 albuterol sulfate 90 mcg/actuation 2 puff inhalation Q 6H PRN 08/29/24 aerosol inhaler (Ventolin HFA) shortness of breath or wheezing #8.5 grams albuterol sulfate 90 mcg/actuation 2 puff inhalation Q 6H PRN 08/29/24 aerosol inhaler (Ventolin HFA) shortness of breath or wheezing #8.5 grams acetaminophen 300 mg-codeine 30 mg 1 tab PO TID PRN pa in #20 tabs 04/28/25 tablet doxycycline monohydrate 100 mg 100 mg PO BID #20 caps 04/28/25 capsule fluconazole 150 mg tablet 150 mg PO Q3D 3 doses #3 tab s 04/28/25 cephalexin 500 mg tablet 500 mg PO Q12H 10 days #20 t abs 09/15/25 fluconazole 150 mg tablet 150 mg PO Q3D 2 doses #2 tab s 09/15/25 oxycodone-acetaminophen 5 mg-325 1 tab PO TID PRN pain #15 tabs 09/15/25 mg tablet (Percocet) Allergies Allergy/AdvReac Type Severity Reaction Status Date / Time No Known Allergies Allergy Verified 09/16/25 02:48 Review of Systems Review of Systems Systems Reviewed: All systems reviewed, normal except as documented Genitourinary Genitourinary: Reports as per HPI and Reports other (genital pain) Past Medical History Past Medical History CARDIAC: Negative Cardiac Disorders or Congestive Heart Failure RESPIRATORY: Positive Asthma; Negative Chronic Obstructive Pulmonary Disease (COPD) GENITOURINARY: Negative Renal Disease ENDOCRINE: Negative Diabetes Mellitus Type 1 or Diabetes Mellitus Type 2 HEMATOLOGIC: Negative Sickle Cell Disease Surgical History SURGICAL: Positive Section Social History SMOKING STATUS: Current every day smoker ED Exam General Limitations: Present no limitations General appearance: Present alert and in distress Head Head exam: Present atraumatic Neck Neck exam: Present normal inspection, full ROM and trachea midline Chest Chest inspection: Present normal inspection and symmetric chest wall rise External exam: Present other (R Bartholin's cyst) Neurological Exam Neurological exam: Present alert and oriented X3 Psychiatric Psychiatric exam: Present normal affect and normal mood Skin Skin exam: Present warm, dry, intact and normal color Course Quality Measures none Orders Category Date Time Status Insert IV NOW Care 09/16/25 05:31 Active CBC Stat Lab 09/16/25 05:50 Completed CMP [Comprehensive Metabolic Panel] Stat Lab 09/16/25 05:50 Completed UA, C/S IF [Urinalysis, C/S if Indicated] Stat Lab 09/16/25 08:48 Completed Urine Culture Stat Lab 09/16/25 08:48 Received Diazepam [Valium] Med 09/16/25 05:10 Discontinued 10 mg PO X1 ONE Ketorolac Inj [Toradol Inj] Med 09/16/25 04:03 Discontinued 60 mg IM X1 ONE Lidocaine 1% Vial 20 ml [Xylocaine 1% 20 ML] Med 09/16/25 04:06 Discontinued 20 ml INFL X1 ONE Morphine* Inj Med 09/16/25 05:31 Discontinued 4 mg IV X1 ONE Ondansetron Inj [Zofran Inj] Med 09/16/25 05:31 Discontinued 4 mg IV X1 ONE Vital Signs Vital signs: Vital Signs Temperature 98.6 F 09/16/25 03:31 Pulse Rate 111 H 09/16/25 03:31 Respiratory Rate 18 09/16/25 03:31 Blood Pressure 117/83 09/16/25 03:31 Pulse Oximetry (%) 98 09/16/25 03:31 Oxygen Delivery Method Room Air 09/16/25 03:31 O2 at 98% on RA and WNLs Urogenital - Female MDM Narrative MDM Narrative:: 44F with history of asthma and drug use and recurrent Bartholin cyst presents to ED with continued worsening pain. Patient was here yesterday where no I&D was done and patient was put on Keflex. Patient is still waiting for insurance approval to be referred to OBGYN. Physical exam with Gladys RN, reveals large L Bartholin cyst. Patient is afebrile, alert, but appears to be in pain. Gait is limping. Despite given 20 mL lido, patient is unable to tolerate I&D. Patient states last time, she had to be put under conscious sedation with ketamine. Spoke to Dr. Knowles OB MD who agrees definite surgical intervention may be necessary. However, there is not enough time left on her shift left to do it. She recommends contacting the oncoming OBGYN, Dr. Reid. Care signed out to [facility] pending basic labs, consult to Dr. Reid, and dispo. Patient eventually admitted. Patient data External records reviewed:: [facility] previous records Clinical information provided by:: patient Social determinants that could affect healthcare access:: substance use Patient has the following chronic illnesses:: drug use and asthma How is presenting disease/condition affected by chronic disease/condition?: exacerbated by Evaluation data The following diagnostics were reviewed and interpreted by me:: lab results Lab and/or radiology exams considered but not ordered:: ordered Interpretation Summary: above Medications / Prescriptions Medications or Prescriptions considered but not ordered:: ordered Medication administrations:: Medication Administration History Acetaminophen (Acetaminophen 325 Mg Tablet) 650 mg PO Q6H PRN PRN Reason: Fever >101.5 Stop: 10/16/25 07:44 Hydrocodone Bitart/Acetaminophen (Hydrocodone/Apap 5/325 Tablet) 1 tab PO Q4H PRN PRN Reason: PAIN SCALE 4-6 (Moderate Stop: 09/21/25 07:44 Albuterol (Albuterol Inh 8 Gm) 2 puff INH Q6H PRN PRN Reason: shortness of breath or wheezing Stop: 10/16/25 07:47 Docusate Sodium (Docusate Sod 100 Mg Capsule) 100 mg PO QDAY PRN PRN Reason: CONSTIPATION Stop: 10/16/25 07:44 Piperacillin/Tazobactam/Dextrose (Zosyn) 3.375 gm in 50 mls @ 12.5 mls/hr IV Q8HR [facility]; Protocol Stop: 09/23/25 13:59 Last Admin: 09/16/25 14:56 Dose: 12.5 mls/hr Documented By: GORDO Sodium Chloride (Ns 0.45%) 1,000 mls @ 100 mls/hr IV .Q10H [facility] Stop: 10/16/25 07:47 Last Admin: 09/16/25 07:55 Dose: 100 mls/hr Documented By: Metoclopramide HCl (Metoclopramide Inj 5 Mg/Ml Vial 2 Ml) 10 mg IVP Q6H PRN; Protocol PRN Reason: NAUSEA OR VOMITING Stop: 10/16/25 07:44 Morphine Sulfate (Morphine Sulf Inj 4 Mg/Ml Vial) 4 mg IVP Q2H PRN PRN Reason: PAIN SCALE 7-10 (Severe Stop: 09/21/25 07:44 Last Admin: 09/16/25 14:31 Dose: 4 mg Documented By: Admin: 09/16/25 11:41 Dose: 4 mg Documented By: ANASTACIO Ondansetron HCl (Ondansetron Inj 2 Mg/Ml Inj 2 Ml) 4 mg IVP Q6H PRN; Protocol PRN Reason: NAUSEA OR VOMITING Stop: 10/16/25 07:44 Pantoprazole Sodium (Pantoprazole Inj 40 Mg Vial) 40 mg IVP QDAY [facility] Stop: 10/16/25 08:59 Last Admin: 09/16/25 09:15 Dose: 40 mg Documented By: ANASTACIO Discontinued Medications Diazepam (Diazepam 5 Mg Tablet) 10 mg PO X1 ONE Stop: 09/16/25 05:11 Last Admin: 09/16/25 06:09 Dose: 10 mg Documented By: JONATHAN Piperacillin/Tazobactam/Dextrose (Zosyn) 3.375 gm in 50 mls @ 100 mls/hr IV X1 ONE; Protocol Stop: 09/16/25 08:29 Last Infusion: 09/16/25 09:18 Dose: Infused Documented By: Admin: 09/16/25 08:36 Dose: 100 mls/hr Documented By: SR Ketorolac Tromethamine (Ketorolac Inj 60 Mg/2 Ml Vial) 60 mg IM X1 ONE Stop: 09/16/25 04:04 Last Admin: 09/16/25 04:41 Dose: 60 mg Documented By: EB Lidocaine HCl (Lidocaine Hcl 1% 20 Ml Vial) 20 ml INFL X1 ONE Stop: 09/16/25 04:07 Last Admin: 09/16/25 04:42 Dose: 20 ml Documented By: EB Morphine Sulfate (Morphine Sulf Inj 4 Mg/Ml Vial) 4 mg IV X1 ONE Stop: 09/16/25 05:32 Last Admin: 09/16/25 06:00 Dose: 4 mg Documented By: EB Non-Formulary Medication (Cyclobenzaprine) 10 mg PO Q8H [facility] Stop: 10/16/25 07:59 Last Admin: 09/16/25 09:16 Dose: Not Given Documented By: DB Non-Admin Reason: Discontinued Ondansetron HCl (Ondansetron Inj 2 Mg/Ml Inj 2 Ml) 4 mg IV X1 ONE; Protocol Stop: 09/16/25 05:32 Last Admin: 09/16/25 06:00 Dose: 4 mg Documented By: JONATHAN above Consultations Consultation(s) initiated? (list below): Yes Diagnosis Urogenital Female Differential Diagnosis: urinary tract infection, bacterial vaginosis, trichomoniasis, cervicitis, ovarian cyst, vaginitis, ruptured ovarian cyst, cyst of Bartholin's gland, cystitis and dysmenorrhea Most likely diagnosis given after review of the tests above:: Bartholin's cyst Admission Indicated Admission indicated?: indicated Admission Request Was there a request for admission?: Yes Admission Attestation Admission request attestation: Discussed case with [] from Hospitalist service regarding admission. Discussed patients ED course, exam findings, labs, and radiology results. The Hospitalist [agrees,declines] to accept the patient for admission. See addendum. Disposition Plan Disposition Plan: Admit Discharge Plan Plan Patient Disposition: Other Care w/in Hosp ([facility]) Discharge Disposition comment: Stable Problem List Clinical Impression: Bartholin gland cyst
[2025-09-16] MEDS: ONDANSETRON INJ 2 MG/ML INJ 2 ML 4 MG IV (06:00)
[2025-09-16] MEDS: MORPHINE SULF INJ 4 MG/ML VIAL IV (06:00)
[2025-09-16] MEDS: DIAZEPAM 5 MG TABLET 10 MG PO (06:09)
[2025-09-16 06:10] LABS: Basophils # (Auto) 0.0 Thou/mm3 (0.0-0.2); Basophils % (Auto) 0 % (0-2.5); Eosinophils # (Auto) 0.4 Thou/mm3 (0.0-0.5); Eosinophils % (Auto) 2 % (0-10); Hematocrit 37.3 % (36.0-46.0); Hemoglobin 12.3 g/dL (12.0-16.0); Immature Granulocytes Auto 0.09 Thou/mm3 (0.00-0.00); Lymphocytes # (Auto) 2.2 Thou/mm3 (1.0-4.8); Lymphocytes % (Auto) 13 % (10-50); Mean Corpuscular HGB Conc 33.0 g/dl (31.0-37.0); Mean Corpuscular Hemoglobin 31.0 pg (25.0-35.0); Mean Corpuscular Volume 94 fL (80-100); Monocytes # (Auto) 1.5 Thou/mm3 (0.0-0.8); Monocytes % (Auto) 8 % (0-12); Neutrophils # (Auto) 13.3 Thou/mm3 (1.8-7.7); Neutrophils % (Auto) 76 % (37-80); Nucleated Red Blood Cell # 0.00 Thou/mm3 (0.00-0.00); Nucleated Red Blood Cell % 0 /100 WBC (0); Platelet Count 347 Thou/mm3 (140-440); RDW Standard Deviation 43.2 fL (36.4-46.3); Red Blood Count 3.97 Miln/mm3 (4.00-5.20); White Blood Count 17.5 Thou/mm3 (3.6-11.0)
--- NOTE | 2025-09-16 06:25 | PC.NURSE ---
Pt in bed VSS, Tolerating medications well now finally resting. Pt remains alert and oriented x4 with gcs 15 and no noted cardiac, pulmonary, gastro, or nuero PMH. Spouse at bedside Pt is pending OBGYN to bedside for plan of action
[2025-09-16 06:27] LABS: Alanine Aminotransferase 47 U/L (10-49); Albumin, Serum 4.3 gm/dL (3.5-5.0); Albumin/Globulin Ratio 1.6 (1.2-2.2); Alkaline Phosphatase 107 U/L (46-116); Anion Gap 8 (7-16); Aspartate Amino Transferase 45 U/L (0-34); BUN/Creatinine Ratio 12 Ratio (12-20); Bilirubin,Total 0.5 mg/dL (0.3-1.2); Blood Urea Nitrogen 11 mg/dL (9-23); Calcium 9.2 mg/dL (8.3-10.6); Calcium (Corrected) 9.2 mg/dL (8.5-10.1); Carbon Dioxide 28.1 mMol/L (20.0-31.0); Chloride 105 mMol/L (98-107); Creatinine (Component) 0.9 mg/dL (0.6-1.3); Estimated Creatinine Clearance 73.7 mL/min (>60); Globulin 2.7 gm/dL (2.3-3.5); Glucose 101 mg/dL (74-106); Osmolality,Calculated 280 (275-295); Potassium 3.8 mMol/L (3.4-5.1); Sodium 141 mMol/L (136-145); Total Protein 7.0 gm/dL (5.7-8.2); eGFR > 60 See Note
--- NOTE | 2025-09-16 07:03 | EDNOTE_ITS ---
ED Skin Abcess FB-RME/HPI General Chief complaint: Skin/Abscess/Foreign Body Stated complaint: CYSTS Time Seen by Provider: 09/16/25 03:52 Source: patient Arrival date/time: 09/16/25 02:47 44-year-old female with a history of methamphetamine abuse, and a recurrent Bartholin cyst presents to the emergency room with a chief complaint of tenderness and another cyst to her vaginal area. Patient states she was seen here yesterday and discharged with antibiotics but her pain got worse Mode of arrival: ambulatory Limitations: no limitations Related Data Home Medications ?Medication ?Instructions ?Recorded ?Confirmed albuterol sulfate 90 mcg/actuation 2 puff inhalation Q 6H PRN 12/23/19 02/09/22 aerosol inhaler Shortness Of Breath Previous Rx's ?Medication ?Instructions ?Recorded cyclobenzaprine 10 mg tablet 10 mg PO Q8H #20 tabs 10/01 oxycodone-acetaminophen 5 mg-325 1 tab PO TID PRN pain #20 tabs 02/10/21 mg tablet (Percocet) sulfamethoxazole 800 1 tab PO BID #14 tabs mg-trimethoprim 160 mg tablet (Bactrim DS) hydrocodone 5 mg-acetaminophen 325 1 tab PO BID PRN pa in #10 tabs 02/14/21 mg tablet naproxen 500 mg tablet (Naprosyn) 500 mg PO BID PRN pa in #30 tabs 11/13/21 doxycycline hyclate 150 mg tablet 150 mg PO BID #20 ta bs 08/05/22 albuterol sulfate 90 mcg/actuation 2 puff inhalation Q 6H PRN 08/29/24 aerosol inhaler (Ventolin HFA) shortness of breath or wheezing #8.5 grams albuterol sulfate 90 mcg/actuation 2 puff inhalation Q 6H PRN 08/29/24 aerosol inhaler (Ventolin HFA) shortness of breath or wheezing #8.5 grams acetaminophen 300 mg-codeine 30 mg 1 tab PO TID PRN pa in #20 tabs 04/28/25 tablet doxycycline monohydrate 100 mg 100 mg PO BID #20 caps 04/28/25 capsule fluconazole 150 mg tablet 150 mg PO Q3D 3 doses #3 tab s 04/28/25 cephalexin 500 mg tablet 500 mg PO Q12H 10 days #20 t abs 09/15/25 fluconazole 150 mg tablet 150 mg PO Q3D 2 doses #2 tab s 09/15/25 oxycodone-acetaminophen 5 mg-325 1 tab PO TID PRN pain #15 tabs 09/15/25 mg tablet (Percocet) Allergies Allergy/AdvReac Type Severity Reaction Status Date / Time No Known Allergies Allergy Verified 09/16/25 02:48 Review of Systems Review of Systems Systems Reviewed: All systems reviewed, normal except as documented Constitutional Constitutional: Reports system reviewed and no additional complaints, except as documented, Denies fatigue, Denies fever(s), Denies headache(s) and Denies weakness Eyes Eyes: Reports system reviewed and no additional complaints, except as documented, Denies blurry vision and Denies change in vision ENT Ears, Nose, Mouth, and Throat: Reports system reviewed and no additional complaints, except as documented, Denies otalgia, Denies headache(s), Denies nasal congestion, Denies throat swelling and Denies vertigo Cardiovascular Cardiovascular: Reports system reviewed and no additional complaints, except as documented, Denies chest pain, Denies dyspnea and Denies dyspnea on exertion Respiratory Respiratory: Reports system reviewed and no additional complaints, except as documented, Denies chest congestion, Denies cough, Denies dyspnea, Denies dyspnea on exertion and Denies wheezing Gastrointestinal Gastrointestinal: Reports system reviewed and no additional complaints, except as documented, Denies abdominal pain, Denies cramping, Denies nausea and Denies vomiting Genitourinary Genitourinary: Reports system reviewed and no additional complaints, except as documented Musculoskeletal Musculoskeletal: Reports system reviewed and no additional complaints, except as documented and Denies back pain Integumentary/Breasts Skin/Breast: Reports system reviewed and no additional complaints, except as documented, Reports erythema, Reports furuncle, Reports skin pain, Reports skin swelling and Reports wounds Neurologic Neurologic: Reports system reviewed and no additional complaints, except as documented, Denies confusion, Denies headache(s), Denies lack of coordination, Denies vertigo and Denies weakness Psychiatric Psychiatric: Reports system reviewed and no additional complaints, except as documented, Denies anxiety, Denies confusion, Denies depression, Denies paranoia, Denies suicidal ideation and Denies tactile hallucinations Endocrine Endocrine: Reports system reviewed and no additional complaints, except as documented and Denies fatigue Hematologic/Lymphatic Hematologic/Lymphatic: Reports system reviewed and no additional complaints, except as documented and Denies lymphadenopathy Allergic/Immunologic Allergic/Immunologic: Reports system reviewed and no additional complaints, except as documented, Denies throat swelling, Denies urticaria and Denies wheezing Past Medical History Past Medical History CARDIAC: Negative Cardiac Disorders or Congestive Heart Failure RESPIRATORY: Positive Asthma; Negative Chronic Obstructive Pulmonary Disease (COPD) GENITOURINARY: Negative Renal Disease ENDOCRINE: Negative Diabetes Mellitus Type 1 or Diabetes Mellitus Type 2 HEMATOLOGIC: Negative Sickle Cell Disease OTHER HISTORY: Negative Autoimmune Disease Family History FAMILY HISTORY: Negative Family Psychiatric Problems, Family Respiratory Disorders, Family Cardiac Disorders, Family Gastrointestinal Problems, Family Genitourinary Problems, Family Endocrine Disorders, Family Reproductive Disorders, Family Musculoskeletal Disorders, Family Cancer, Family Surgery or Family Anesthesia Reaction Surgical History SURGICAL: Positive Section OTHER SURGICAL HX: Extensive hx of amy cysts 10 to Pt memoruy with alot of scared tissue possibly pocketed pus Social History SMOKING STATUS: Current every day smoker ED Exam General Limitations: Present no limitations General appearance: Present alert and in distress Head Head exam: Present atraumatic Eye Eye exam: Present normal appearance, PERRL and EOMI ENT ENT exam: Present normal exam, normal oropharynx and mucous membranes moist Neck Neck exam: Present normal inspection, full ROM and trachea midline Chest Chest inspection: Present normal inspection and symmetric chest wall rise Respiratory Respiratory exam: Present normal lung sounds bilaterally Cardiovascular Cardiovascular exam: Present regular rate, normal rhythm and normal heart sounds Abdominal Exam Abdominal exam: Present soft and normal bowel sounds External exam: Present other (3 cm nonfluctuant Bartholin gland cyst right labia diffuse erythema and tenderness no discharge) Genitals Female CloseUp: 2 1. 3 cm nonfluctuant Bartholin gland cyst right labia diffuse erythema and tenderness no discharge Extremities Exam Extremities exam: Present normal inspection and full ROM Back Exam Back exam: Present normal inspection and full ROM Neurological Exam Neurological exam: Present alert, oriented X3 and CN II-XII intact Psychiatric Psychiatric exam: Present normal affect and normal mood Skin Skin exam: Present warm, dry, intact and normal color Course Quality Measures none Orders Category Date Time Status Insert IV NOW Care 09/16/25 05:31 Active CBC Stat Lab 09/16/25 05:50 Completed CMP [Comprehensive Metabolic Panel] Stat Lab 09/16/25 05:50 Completed UA, C/S IF [Urinalysis, C/S if Indicated] Stat Lab 09/16/25 07:49 Ordered Diazepam [Valium] Med 09/16/25 05:10 Discontinued 10 mg PO X1 ONE Ketorolac Inj [Toradol Inj] Med 09/16/25 04:03 Discontinued 60 mg IM X1 ONE Lidocaine 1% Vial 20 ml [Xylocaine 1% 20 ML] Med 09/16/25 04:06 Discontinued 20 ml INFL X1 ONE Morphine* Inj Med 09/16/25 05:31 Discontinued 4 mg IV X1 ONE Ondansetron Inj [Zofran Inj] Med 09/16/25 05:31 Discontinued 4 mg IV X1 ONE Vital Signs Vital signs: Vital Signs Temperature 98.6 F 09/16/25 03:31 Pulse Rate 111 H 09/16/25 03:31 Respiratory Rate 18 09/16/25 03:31 Blood Pressure 117/83 09/16/25 03:31 Pulse Oximetry (%) 98 09/16/25 03:31 Oxygen Delivery Method Room Air 09/16/25 03:31 Skin / Abscess / Foreign Body MDM Narrative MDM Narrative:: 44-year-old female with a history of methamphetamine abuse, and a recurrent Bartholin cyst presents to the emergency room with a chief complaint of tenderness and another cyst to her vaginal area. Patient states she was seen here yesterday and discharged with antibiotics but her pain got worse Patient is hemodynamically stable and in no apparent distress. She is not tachycardic not tachypneic and she is afebrile Physical examination shows some vulvar cellulitis. The patient has a Bartholin cyst to the right vulva. The provider before me ROBBY Valerio attempted to I&D the Bartholin cyst but the patient was unable to tolerate it even after [address] Reid the MAIL SUPERINTENDENT was consulted and he came to evaluate the patient and will be admitting the patient Patient data External records reviewed:: None Clinical information provided by:: patient Social determinants that could affect healthcare access:: none Patient has the following chronic illnesses:: none How is presenting disease/condition affected by chronic disease/condition?: no chronic disease Evaluation data The following diagnostics were reviewed and interpreted by me:: other (specify) (none) Lab and/or radiology exams considered but not ordered:: none Interpretation Summary: n/a Medications / Prescriptions Medications or Prescriptions considered but not ordered:: none Medication administrations:: Medication Administration History Acetaminophen (Acetaminophen 325 Mg Tablet) 650 mg PO Q6H PRN PRN Reason: Fever >101.5 Stop: 10/16/25 07:44 Hydrocodone Bitart/Acetaminophen (Hydrocodone/Apap 5/325 Tablet) 1 tab PO Q4H PRN PRN Reason: PAIN SCALE 4-6 (Moderate Stop: 09/21/25 07:44 Albuterol (Albuterol Inh 8 Gm) 2 puff INH Q6H PRN PRN Reason: shortness of breath or wheezing Stop: 10/16/25 07:47 Docusate Sodium (Docusate Sod 100 Mg Capsule) 100 mg PO QDAY PRN PRN Reason: CONSTIPATION Stop: 10/16/25 07:44 Piperacillin/Tazobactam/Dextrose (Zosyn) 3.375 gm in 50 mls @ 12.5 mls/hr IV Q8HR [facility]; Protocol Stop: 09/23/25 13:59 Sodium Chloride (Ns 0.45%) 1,000 mls @ 100 mls/hr IV .Q10H [facility] Stop: 10/16/25 07:47 Last Admin: 09/16/25 07:55 Dose: 100 mls/hr Documented By: SR Metoclopramide HCl (Metoclopramide Inj 5 Mg/Ml Vial 2 Ml) 10 mg IVP Q6H PRN; Protocol PRN Reason: NAUSEA OR VOMITING Stop: 10/16/25 07:44 Morphine Sulfate (Morphine Sulf Inj 4 Mg/Ml Vial) 4 mg IVP Q2H PRN PRN Reason: PAIN SCALE 7-10 (Severe Stop: 09/21/25 07:44 Ondansetron HCl (Ondansetron Inj 2 Mg/Ml Inj 2 Ml) 4 mg IVP Q6H PRN; Protocol PRN Reason: NAUSEA OR VOMITING Stop: 10/16/25 07:44 Pantoprazole Sodium (Pantoprazole Inj 40 Mg Vial) 40 mg IVP QDAY [facility] Stop: 10/16/25 08:59 Discontinued Medications Diazepam (Diazepam 5 Mg Tablet) 10 mg PO X1 ONE Stop: 09/16/25 05:11 Last Admin: 09/16/25 06:09 Dose: 10 mg Documented By: EB Piperacillin/Tazobactam/Dextrose (Zosyn) 3.375 gm in 50 mls @ 100 mls/hr IV X1 ONE; Protocol Stop: 09/16/25 08:29 Last Admin: 09/16/25 08:36 Dose: 100 mls/hr Documented By: SR Ketorolac Tromethamine (Ketorolac Inj 60 Mg/2 Ml Vial) 60 mg IM X1 ONE Stop: 09/16/25 04:04 Last Admin: 09/16/25 04:41 Dose: 60 mg Documented By: EB Lidocaine HCl (Lidocaine Hcl 1% 20 Ml Vial) 20 ml INFL X1 ONE Stop: 09/16/25 04:07 Last Admin: 09/16/25 04:42 Dose: 20 ml Documented By: EB Morphine Sulfate (Morphine Sulf Inj 4 Mg/Ml Vial) 4 mg IV X1 ONE Stop: 09/16/25 05:32 Last Admin: 09/16/25 06:00 Dose: 4 mg Documented By: EB Non-Formulary Medication (Cyclobenzaprine) 10 mg PO Q8H TOREY Stop: 10/16/25 07:59 Ondansetron HCl (Ondansetron Inj 2 Mg/Ml Inj 2 Ml) 4 mg IV X1 ONE; Protocol Stop: 09/16/25 05:32 Last Admin: 09/16/25 06:00 Dose: 4 mg Documented By: EB Rocephin morphine and Phenergan Consultations Consultation(s) initiated? (list below): Yes Consultation #1 (Physician, Specialty, Details): Dr. Reid Time: 07:30 Diagnosis Skin/Abscess Differential Diagnosis: abscess of skin or subcutaneous tissue, cellulitis, contact dermatitis and other (Bartholin gland cyst) Most likely diagnosis given after review of the tests above:: Bartholin gland cyst Admission Indicated Admission indicated?: indicated Admission Request Was there a request for admission?: Yes Admission Attestation Admission request attestation: Discussed case with [Dr. Reid] from Hospitalist service regarding admission. Discussed patients ED course, exam findings, labs, and radiology results. The Hospitalist [agrees,declines] to accept the patient for admission. Disposition Plan Disposition Plan: Discharge Discharge Attestation Discharge Attestation: The patient and all family members were given an opportunity to ask questions and understood the discharge instructions. Discharge instructions specifically effects, indications for sooner follow up or return to the emergency department, and the expected course of current diagnosis. Patient condition: Stable Discharge Plan Plan Patient Disposition: Admit Acute Care w/in Hospital Discharge Disposition comment: Stable Problem List Clinical Impression: Bartholin gland cyst
[2025-09-16] MEDS: SODIUM CHLORIDE 0.45 % 1,000 ML 100 ML IV ×2 (07:55→22:13)
[2025-09-16] MEDS: PIPER/TAZO 3.375 GM PREMIX 3.375 GM/50 ML BAG IV ×3 (08:36→22:14)
--- NOTE | 2025-09-16 09:00 | ESHP_ITS ---
Documentation for date of: 09/16/25 CONVERTIBLE POWER SHOVEL OPERATOR - HPI History of Present Illness History of present illness: Ms. 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 Patient has multiple previous incision and` drainage procedures done this year with recurrence of cyst. Patient was in the emergency room last night with similar complaints and she was treated with Keflex. She returned here again early in the morning with worsening of symptoms. Patient denies any fever or chills or any other systemic symptoms. Review of Systems Review of Systems Systems Reviewed: All systems reviewed, normal except as documented Meds Home Medications and Allergies Home Medications ?Medication ?Instructions ?Recorded ?Confirmed ?Type albuterol sulfate 90 mcg/actuation 2 puff inhalation Q 6H PRN 12/23/19 02/09/22 History aerosol inhaler Shortness Of Breath Allergies Allergy/AdvReac Type Severity Reaction Status Date / Time No Known Allergies Allergy Verified 09/16/25 02:48 Exam - CONVERTIBLE POWER SHOVEL OPERATOR Vital Signs Temp Pulse Resp BP Pulse Ox O2 Del Method 97.9 F 66 14 124/62 97 Room Air 09/16/25 06:18 09/16/25 06:18 09/16/25 06:18 09/16/25 06:18 09/16/25 06:18 09/16/25 06:18 Constitutional Constitutional: no acute distress Routine HEENT Exam Head: Present normocephalic and atraumatic Eye: Present EOMI and PERRL ENT: Present mucous membranes moist Routine Neck Exam Neck: Present supple and trachea midline Routine Respiratory Exam Respiratory: Present chest non-tender, lungs clear, normal breath sounds and no resp distress Routine Cardiovascular Exam Cardiovascular: Present RRR Routine Abdominal Exam Abdominal: Present soft and normoactive bowel sounds Routine Exam Genitals image: 2 1. Vulvar cellulitis Comments: Vulvar cellulitis encompassing the above marked area in the clinical diagram Routine Extremities Exam Extremities: Present full ROM Routine Skin Exam Skin: Present intact and dry Routine Neurological Exam Neurological: Present alert, oriented X3 and CN II-XII intact Routine Psychiatric Exam Psychiatric: Present normal affect and normal thought process CONVERTIBLE POWER SHOVEL OPERATOR - Results Labs 09/16/25 05:50 09/16/25 05:50 Labs: Short CBC 09/16/25 Range/Units 05:50 WBC 17.5 H (3.6-11.0) Thou/mm3 Hgb 12.3 (12.0-16.0) g/dL Hct 37.3 (36.0-46.0) % Plt Count 347 (140-440) Thou/mm3 BMP 09/16/25 05:50 Sodium 141 Potassium 3.8 Chloride 105 Carbon Dioxide 28.1 BUN 11 Creatinine 0.9 Glucose 101 Calcium 9.2 Liver Function 09/16/25 Range/Units 05:50 Total Bilirubin 0.5 (0.3-1.2) mg/dL AST 45 H (0-34) U/L ALT 47 (10-49) U/L Alkaline Phosphatase 107 (46-116) U/L Albumin 4.3 (3.5-5.0) gm/dL Assessment and Plan Assessment and plan (1) Bartholin gland cyst: Status: Acute (2) Continuous methamphetamine dependence: Status: Acute (3) Vulvar cellulitis: Status: Acute Assessment and plan: 44-year-old with recurrent Bartholin cyst with vulvar cellulitis Admit to observation for IV antibiotics, will consider incision and drainage depending on resolution of cellulitis Start antibiotics with Zosyn, will monitor for progression Blood culture and urine culture ordered CT scan to delineate extent of cellulitis Regular reassessment and surgical planning as needed Quality Measures Quality Measures none
--- NOTE | 2025-09-16 09:04 | XR_ITS ---
Examination: CT pelvis without intravenous contrast. 2-D sagittal and coronal reconstructions. Date and time of exam: September 16, 2025, 10:43 a.m. INDICATIONS: Diagnosis of vulvar cellulitis tenderness in the vaginal region CTDI: vol (mGy) : 9.12 DLP: (mGycm) : 284 Technique: Multiple 3 mm axial sections of the pelvis have been obtained with the 64 slice high resolution scanner. 2-D sagittal and coronal reconstructions. Low dose protocols were performed. One or more of the following dose reduction techniques were used; automated exposure control, adjustment of the mA and/or KV according to patient size, use of iterative reconstruction technique. Findings: Normal appendix No bowel obstruction Retroverted uterus Trace free fluid in the pelvis Urinary bladder intact Axial image 119, sagittal image 113 consistent with right labial abscess, 31 x 20 x 29 mm Advanced degenerative disc disease L4-L5 IMPRESSION: Right labial abscess 31 x 20 x 29 mm
--- NOTE | 2025-09-16 09:06 | PC.NURSE ---
This Nurse contacted Dr. Reid regarding patient being allergic to CT contrast Media. Per Dr. Reid change CT scan order w/o contrast.
[2025-09-16 09:10] LABS: Collection Type, Urine Clean Catch
[2025-09-16 09:31] LABS: Bacteria,Urine Rare; Bilirubin,Urine Negative (Negative); Blood,Urine 2+ (Negative); Color,Urine Lt-Yellow (Lt Yel-Yel); Glucose, Urine Negative (Negative); Hyaline Casts,Urine < 1 /hpf (0-1); Ketones,Urine Negative (Negative); Leukocyte Esterase,Urine Positive (Negative); Nitrite,Urine Negative (Negative); PH,Urine 6.0 (5.0-7.0); Protein,Urine Trace (Neg - Trace); RBC,Urine 9 /hpf (0-3); Specific Gravity,Urine 1.022 (1.001-1.035); Squamous Epithelial Cell,Urine 5 /hpf (0-5); Urobilinogen,Urine Negative mg/dL (0.0-1.0); WBC,Urine 41 /hpf (0-5)
[2025-09-16 09:59] LABS: Clarity,Urine Hazy (Clear/Hazy); Culture Indicated,Urine Yes
[2025-09-16 10:19] LABS: HCG Qualitative,Urine Negative
[2025-09-16] MEDS: MORPHINE SULF INJ 4 MG/ML VIAL IVP ×3 (11:41→20:59)
--- NOTE | 2025-09-16 16:00 | PC.NURSE ---
Patient called nurse's station stating abscess had ruptured. On inspection approximately 30 ml of purulent drainage was noted, swab for culture was taken, patient was cleaned and provided with clean gown and peripad. Dr. Reid made aware, MD to assess at bedside.
--- NOTE | 2025-09-16 18:15 | ESPR_ITS ---
Documentation for date of: 09/16/25 HYDROELECTRIC MACHINERY MECHANIC Subjective Subjective Interval history: I was called in by nursing that patient had ruptured her abscess. On bedside evaluation she had about 30 cc of purulent bloodstained fluid. The vulvar area was examined and she continues to have hematoma/edema of the right labium. No fevers or chills. Exam Vital Signs Temp Pulse Resp BP Pulse Ox O2 Del Method 97.4 F 92 18 110/70 94 L Room Air 09/16/25 16:00 09/16/25 16:00 09/16/25 16:00 09/16/25 16:00 09/16/25 16:00 09/16/25 16:00 Narrative Exam Area of induration is smaller than evaluation earlier in the morning Draining pointed out noted at the right labial margin at the labial vaginal junction Culture swab sent Urinary Catheter Management Cath placed during this visit: no HYDROELECTRIC MACHINERY MECHANIC - PN: Obj Data Labs 09/16/25 05:50 09/16/25 05:50 Labs: Laboratory Results - last 24 hr 09/16/25 09/16/25 05:50 08:48 WBC 17.5 H RBC 3.97 L Hgb 12.3 Hct 37.3 MCV 94 MCH 31.0 MCHC 33.0 RDW Std Deviation 43.2 Plt Count 347 Neut % (Auto) 76 Lymph % (Auto) 13 [place] % (Auto) 8 Eos % (Auto) 2 Baso % (Auto) 0 Neut # (Auto) 13.3 H Lymph # (Auto) 2.2 [place] # (Auto) 1.5 H Eos # (Auto) 0.4 Baso # (Auto) 0.0 Immature Gran # (Auto) 0.09 H Absolute Nucleated RBC 0.00 Immature Gran % 1 H Nucleated RBC % 0 Sodium 141 Potassium 3.8 Chloride 105 Carbon Dioxide 28.1 Anion Gap 8 BUN 11 Creatinine 0.9 Estim Creat Clear Calc 73.7 eGFR > 60 BUN/Creatinine Ratio 12 Glucose 101 Calculated Osmolality 280 Calcium 9.2 Corrected Calcium 9.2 Total Bilirubin 0.5 AST 45 H ALT 47 Alkaline Phosphatase 107 Total Protein 7.0 Albumin 4.3 Globulin 2.7 Albumin/Globulin Ratio 1.6 Ur Collection Type Clean Catch Urine Color Lt-Yellow Urine Clarity Hazy Urine pH 6.0 Ur Specific [place] 1.022 Urine Protein Trace Urine Glucose (UA) Negative Urine Ketones Negative Urine Blood 2+ A Urine Nitrite Negative Urine Bilirubin Negative Urine Urobilinogen (Auto) Negative Ur Leukocyte Esterase Positive Urine RBC 9 H Urine WBC 41 H Ur Squamous Epith Cells 5 Urine Bacteria Rare Hyaline Casts < 1 Ur Culture Indicated? Yes Urine HCG, Qual Negative HYDROELECTRIC MACHINERY MECHANIC - A/P Assessment and plan (1) Bartholin gland cyst: Status: Acute (2) Continuous methamphetamine dependence: Status: Acute (3) Vulvar cellulitis: Status: Acute Assessment and plan: Continue Zosyn. Possible incision and drainage in the OR tomorrow. N.p.o. after midnight. Time Spent With Patient Time: Total time spent is greater than 50% in coordination of care (as documented) at patient's floor/unit and/or counseling patient: Time with patient: less than 15 minutes
[2025-09-16] MEDS: ONDANSETRON INJ 2 MG/ML INJ 2 ML 4 MG IVP (20:59)
[2025-09-16] MEDS: HYDROcodone/APAP 5/325 TABLET 1 TAB PO (23:54)
[2025-09-17] VITALS (7 sets, daily range): BP systolic 87–112; BP diastolic 51–77; PULSE 76–91; RESP 16–20; TEMP 36.2–37.1; O2SAT 97–98
[2025-09-17] MEDS: PIPER/TAZO 3.375 GM PREMIX 3.375 GM/50 ML BAG IV ×3 (05:56→21:23)
[2025-09-17] MEDS: RINGERS LACTATED 1000 ML 1,000 ML 999 ML IV (06:24)
[2025-09-17] MEDS: SODIUM CHLORIDE 0.45 % 1,000 ML 100 ML IV ×2 (08:44→14:36)
--- NOTE | 2025-09-17 13:33 | PD.GYNPROG ---
Documentation for date of: 09/17/25 COMPLAINT SUPERVISOR Subjective Subjective Interval history: I was called in by nursing that patient had ruptured her abscess. On bedside evaluation she had about 30 cc of purulent bloodstained fluid. The vulvar area was examined and she continues to have hematoma/edema of the right labium. No fevers or chills. 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 She will need referral for the procedure to [facility] or someone comfortable with that procedure after being discharged from here .Today on exam there is no fluctuation on the R labial / bartholin cyst/abscess area, only induration / recommend continuing the same zosyn, sitz bath and stop morphine and start on Toradol and at discharge Doxycycline and flagyl and also Ibuprofen and referral for excision to studio technician [facility] patient states she has had recurrence x 5 in the same area of R Bartholin cyst Exam Vital Signs Temp Pulse Resp BP Pulse Ox O2 Del Method 98 F 83 16 102/73 97 Room Air 09/17/25 12:00 09/17/25 12:00 09/17/25 12:00 09/17/25 12:00 09/17/25 12:00 09/17/25 12:00 Narrative Exam Today on exam there is no fluctuation on the R labial / bartholin cyst/abscess area, only induration / recommend continuing the same zosyn, sitz bath and stop morphine and start on Toradol and at discharge Doxycycline and flagyl and also Ibuprofen and referral for excision to studio technician [facility] patient states she has had recurrence x 5 in the same area of R Bartholin cyst Urinary Catheter Management Cath placed during this visit: no COMPLAINT SUPERVISOR - PN: Obj Data Labs 09/16/25 05:50 09/16/25 05:50 COMPLAINT SUPERVISOR - A/P Assessment and plan (1) Bartholin gland cyst: Status: Acute (2) Continuous methamphetamine dependence: Status: Acute (3) Vulvar cellulitis: Problem details: patient had spontaneous rupture of R Bartholin gland cyst/ abscess / and now there is only induration and cellulitis and improving / Plan to continue the same iv antibiotics / anti inflammatory and refer for excision of the R Bartholin gland to an expert as outpatient Status: Acute Time Spent With Patient Time: Total time spent is greater than 50% in coordination of care (as documented) at patient's floor/unit and/or counseling patient: Time with patient: 25 - 35 minutes
[2025-09-17] MEDS: KETOROLAC INJ 30 MG/ML VIAL IVP ×2 (14:36→21:23)
[2025-09-18] VITALS (18 sets, daily range): BP systolic 86–115; BP diastolic 51–76; PULSE 61–109; RESP 12–98; TEMP 36.3–36.8; O2SAT 94–98
[2025-09-18] MEDS: SODIUM CHLORIDE 0.45 % 1,000 ML 100 ML IV ×2 (04:19→18:47)
[2025-09-18] MEDS: KETOROLAC INJ 30 MG/ML VIAL IVP ×2 (04:24→20:16)
[2025-09-18] MEDS: PIPER/TAZO 3.375 GM PREMIX 3.375 GM/50 ML BAG IV ×3 (06:37→22:24)
--- NOTE | 2025-09-18 10:56 | PC.NURSE ---
pt went for surgery at 1056
--- NOTE | 2025-09-18 11:58 | ESOP_ITS ---
Operative Note - CONVEYOR OPERATOR Procedure Date of procedure: 09/18/25 Procedure Performed: Excision of right Bartholin's cyst and gland Indication: Recurrent right Bartholin cyst with abscess and vulvar cellulitis Anesthesia type: General Procedure description: Informed consent was obtained. The patient was brought to the operating room and identified using two patient identifiers. She was placed in the dorsal lithotomy position under appropriate anesthesia. The perineum was prepped and draped in the usual sterile fashion, and a surgical timeout was performed. Attention was directed to the right vulvar region, where a palpable Bartholin?s cyst was noted. A linear incision was made over the most prominent area of the cyst using an #11 blade. Dissection was carried through the overlying mucosa and submucosal tissue to access the cyst cavity. The cyst wall was carefully identified and gently from surrounding tissue using a combination of sharp dissection and electrocautery. The cyst wall was grasped with a Gayla clamp to provide counter-traction, allowing for progressive mobilization and complete excision of the cyst. Hemostasis was confirmed throughout. The residual cavity was irrigated and inspected. No significant bleeding was noted. The cavity was then closed in layers using 3-0 Vicryl absorbable suture. The external incision was re-approximated, and a sterile dressing was applied. The patient tolerated the procedure well and was transferred to the recovery area in stable condition. All counts were correct ?2. Estimated blood loss (ml): 50 Complications: none Surgical staff Operation Date: 09/18/25 11:45 Case Staff ROBOTIC MAINTENANCE TECHNICIAN: Cedric Freitas Diagnosis Discharge Diagnosis (1) Vulvar cellulitis: Status: Acute (2) Bartholin gland cyst: Status: Acute Problem List Completed Was Problem List Reviewed/Reconciled?: Yes
--- NOTE | 2025-09-18 11:59 | SUR.PHASEI ---
1159: Pt. AAOx4, vitals stable, breathing unlabored, no complaint of pain or nausea, peripad in place with scant amount of blood, report received from Luis WHITTINGTON and Sisi DAWSON.
--- NOTE | 2025-09-18 12:03 | ESPR_ITS ---
Documentation for date of: 09/18/25 MOBILE DEVICE ENGINEER Subjective Subjective Interval history: Patient examined at bedside. Continues to have induration and palpable cyst wall. Significant reduction in vulvar cellulitis. Does want to proceed with excision of vulvar cyst. Exam Vital Signs Temp Pulse Resp BP Pulse Ox O2 Del Method 97.8 F 83 17 97/53 L 96 Room Air 09/18/25 08:00 09/18/25 09:30 09/18/25 09:30 09/18/25 08:00 09/18/25 09:30 09/18/25 08:00 Constitutional Constitutional: no acute distress Routine HEENT Exam Head: Present normocephalic and atraumatic Eye: Present EOMI and PERRL ENT: Present mucous membranes moist Routine Neck Exam Neck: Present supple and trachea midline Routine Respiratory Exam Respiratory: Present chest non-tender, lungs clear, normal breath sounds and no resp distress Routine Cardiovascular Exam Cardiovascular: Present RRR Routine Abdominal Exam Abdominal: Present soft and normoactive bowel sounds Routine Extremities Exam Extremities: Present full ROM Routine Skin Exam Skin: Present intact and dry Routine Neurological Exam Neurological: Present alert, oriented X3 and CN II-XII intact Routine Psychiatric Exam Psychiatric: Present normal affect and normal thought process Urinary Catheter Management Cath placed during this visit: no MOBILE DEVICE ENGINEER - PN: Obj Data Labs 09/16/25 05:50 09/16/25 05:50 MOBILE DEVICE ENGINEER - A/P Assessment and plan (1) Vulvar cellulitis: Status: Acute (2) Bartholin gland cyst: Status: Acute Assessment and plan: Planned incision and drainage with excision of Bartholin's cyst in the OR Postoperative Procedures: Procedures Operation Date: 09/18/25 11:45 Actual Procedure Side Surgeon p Incision and Drainage of Bartholin Cyst, Excision Right German Reid MD Time Spent With Patient Time: Total time spent is greater than 50% in coordination of care (as documented) at patient's floor/unit and/or counseling patient: Time with patient: less than 15 minutes
--- NOTE | 2025-09-18 12:32 | SUR.PHASEI ---
1232: Pt. AAOx4, vitals stable, breathing unlabored, no complaint of pain or nausea, peripad in place with same amount of drainage as arrival to PACU, pt. tolerated bites of ice chips and jello well, gave report to Nelda DAWSON prior to transfer to room. Family aware of transfer back to room.
--- NOTE | 2025-09-18 12:49 | PC.NURSE ---
pt back from [facility]. pt denies any pain
[2025-09-18] MEDS: HYDROmorphone INJ 2 MG/ML VIAL IVP ×2 (13:01→22:36)
[2025-09-18] MEDS: METOCLOPRAMIDE INJ 5 MG/ML VIAL 2 ML 10 MG IVP (13:05)
[2025-09-18] MEDS: ALBUTEROL INH 8 GM 2 PUFF INH (20:05)
[2025-09-18] MEDS: DOCUSATE SOD 100 MG CAPSULE PO (22:25)
[2025-09-19] VITALS: BP 121/73; PULSE 84; RESP 19; TEMP 36.6; O2SAT 99
[2025-09-19 02:48] VITALS: PULSE 68; PULSE 69; RESP 16; RESP 96; O2SAT 96
[2025-09-19] MEDS: ALBUTEROL INH 8 GM 2 PUFF INH (02:48)
[2025-09-19] MEDS: SODIUM CHLORIDE 0.45 % 1,000 ML 100 ML IV (03:05)
[2025-09-19] MEDS: HYDROmorphone INJ 2 MG/ML VIAL IVP ×2 (03:16→08:13)
[2025-09-19 04:00] VITALS: BP 96/53; PULSE 70; RESP 18; TEMP 36.6; O2SAT 97
[2025-09-19 06:07] LABS: Basophils # (Auto) 0.1 Thou/mm3 (0.0-0.2); Basophils % (Auto) 0 % (0-2.5); Eosinophils # (Auto) 0.0 Thou/mm3 (0.0-0.5); Eosinophils % (Auto) 0 % (0-10); Hematocrit 34.5 % (36.0-46.0); Hemoglobin 10.8 g/dL (12.0-16.0); Immature Granulocytes Auto 0.18 Thou/mm3 (0.00-0.00); Lymphocytes # (Auto) 2.7 Thou/mm3 (1.0-4.8); Lymphocytes % (Auto) 13 % (10-50); Mean Corpuscular HGB Conc 31.3 g/dl (31.0-37.0); Mean Corpuscular Hemoglobin 29.6 pg (25.0-35.0); Mean Corpuscular Volume 95 fL (80-100); Monocytes # (Auto) 1.2 Thou/mm3 (0.0-0.8); Monocytes % (Auto) 5 % (0-12); Neutrophils # (Auto) 17.3 Thou/mm3 (1.8-7.7); Neutrophils % (Auto) 81 % (37-80); Nucleated Red Blood Cell # 0.00 Thou/mm3 (0.00-0.00); Nucleated Red Blood Cell % 0 /100 WBC (0); Platelet Count 449 Thou/mm3 (140-440); RDW Standard Deviation 42.0 fL (36.4-46.3); Red Blood Count 3.65 Miln/mm3 (4.00-5.20); White Blood Count 21.4 Thou/mm3 (3.6-11.0)
[2025-09-19] MEDS: PIPER/TAZO 3.375 GM PREMIX 3.375 GM/50 ML BAG IV (06:16)
[2025-09-19 08:00] VITALS: BP 133/83; PULSE 95; RESP 18; TEMP 36.4; O2SAT 97
[2025-09-19 08:12] VITALS: PULSE 76; RESP 18; RESP 99; O2SAT 99
[2025-09-19] MEDS: ONDANSETRON INJ 2 MG/ML INJ 2 ML 4 MG IVP (08:13)
--- NOTE | 2025-09-19 10:06 | PD.GYNPROG ---
Documentation for date of: 09/19/25 VICE PRESIDENT OF COMPLIANCE Subjective Subjective Interval history: Patient examined at bedside. Doing well. Has minor discomfort at the surgical site. Complaining of constipation and inability to pass bowels and requesting enema Exam Vital Signs Temp Pulse Resp BP Pulse Ox O2 Del Method 97.5 F 95 18 133/83 H 97 Room Air 09/19/25 08:00 09/19/25 08:00 09/19/25 08:00 09/19/25 08:00 09/19/25 08:00 09/19/25 08:00 Narrative Exam Surgical site clean dry and intact. Urinary Catheter Management Cath placed during this visit: no VICE PRESIDENT OF COMPLIANCE - PN: Obj Data Labs 09/19/25 05:35 09/16/25 05:50 Labs: Laboratory Results - last 24 hr 09/19/25 05:35 WBC 21.4 H RBC 3.65 L Hgb 10.8 L Hct 34.5 L MCV 95 MCH 29.6 MCHC 31.3 RDW Std Deviation 42.0 Plt Count 449 H D Neut % (Auto) 81 H Lymph % (Auto) 13 [place] % (Auto) 5 Eos % (Auto) 0 Baso % (Auto) 0 Neut # (Auto) 17.3 H Lymph # (Auto) 2.7 [place] # (Auto) 1.2 H Eos # (Auto) 0.0 Baso # (Auto) 0.1 Immature Gran # (Auto) 0.18 H Absolute Nucleated RBC 0.00 Immature Gran % 1 H Nucleated RBC % 0 VICE PRESIDENT OF COMPLIANCE - A/P Assessment and plan (1) Vulvar cellulitis: Status: Acute (2) Bartholin gland cyst: Status: Acute Assessment and plan: Postoperative day #1 status post excision of right Bartholin cyst. Patient recovering appropriately from surgery Dulcolax suppository and Fleet enema ordered. Anticipate discharge home today when she has a bowel movement Postoperative Procedures: Procedures Operation Date: 09/18/25 11:45 Actual Procedure Side Surgeon p Bartholin Cyst Excision Right German Reid MD Time Spent With Patient Time: Total time spent is greater than 50% in coordination of care (as documented) at patient's floor/unit and/or counseling patient: Time with patient: less than 15 minutes
--- NOTE | 2025-09-19 10:08 | ESDS_ITS ---
Planned Discharge Date 09/19/25 DS: Providers Provider Date of admission: 09/16/25 07:45 Primary care physician: LYNSEY Lomas MD Admitting Provider: German Reid MD Attending Provider on Admission: German Reid MD Attending Provider on DC: German Reid MD Discharging Provider: German Reid MD DS: Diagnosis Problem List Completed Was Problem List Reviewed/Reconciled?: Yes Hospital Course Hospital Course Hospital course: Patient is a 44-year-old female who was admitted on 09/16/2025 for right vulvar abscess with cellulitis. She was initially treated with IV antibiotics and then on 09/18/2025 she was taken back to the operating room for excision of right Bartholin cyst. Cyst wall was successfully excised, and the skin defect was repaired using 3-0 Vicryl. Patient's postoperative course is uneventful. She is cleared for discharge today. Time Spent with Patient Time attestation: Total time spent providing and/or coordinating discharge services: Time spent: Less than 30 minutes Exam - PELLETIZER TENDER Vital Signs Temp Pulse Resp BP Pulse Ox O2 Del Method 97.5 F 95 18 133/83 H 97 Room Air 09/19/25 08:00 09/19/25 08:00 09/19/25 08:00 09/19/25 08:00 09/19/25 08:00 09/19/25 08:00 Discharge Plan Plan Patient Disposition: HOME (Self Care) Patient condition on transfer: Stable Prescriptions/Referrals Prescriptions/Med Rec: New docusate sodium [Stool Softener] 100 mg capsule 100 mg PO QDAY 30 Days Qty: 30 0RF amoxicillin-pot clavulanate 875-125 mg tablet 1 tab PO BID 7 Days Qty: 14 0RF metronidazole 500 mg tablet 500 mg PO Q8H 7 Days Qty: 21 0RF ibuprofen 600 mg tablet 600 mg PO Q6H MDD 4 PRN (Reason: fever or pain) 10 Days Qty: 40 0RF Continued albuterol sulfate 90 mcg/actuation HFA aerosol inhaler 2 puff IH Q6H PRN (Reason: Shortness Of Breath) Patient Comments: not taking acetaminophen-codeine 300-30 mg tablet 1 tab PO TID PRN (Reason: pain) Qty: 20 0RF Discontinued cephalexin 500 mg tablet 500 mg PO Q12H 10 Days Qty: 20 0RF Referrals: German Reid MD [Physician, OVERHEAD CRANE INSPECTOR] SQ Ryley Lomas MD [Primary Care Provider, Family Practice] Patient/Caregiver Discharge Instructions Education Materials: Bartholin Cyst and Abscess Print Language: Greenlandic Stand Alone Forms: Andreea Award Info., Patient Portal Info Letter, Work/Release Restrictions, DC from Surgery Discharge Order Discharge Orders: Discharge (Routine); Ordered 09/19/25 Ordered By: German Reid
--- NOTE | 2025-09-19 10:24 | PC.NURSE ---
Discharge is in I have to give a suppository and enema before patient discharges
[2025-09-19 12:00] VITALS: BP 134/80; PULSE 81; RESP 18; TEMP 36.5; O2SAT 100
--- NOTE | 2025-09-19 12:35 | PC.NURSE ---
gave patient her enema. She is now eating lunch. Will call when she is ready for discharge
--- NOTE | 2025-09-19 12:54 | PC.NURSE ---
Lab called preliminary bottle blood culture is gram positive cocci
--- NOTE | 2025-09-20 09:42 | PC.SS ---
SS met with patient regarding her d/c plan. Pt is alert/oriented. Pt was admitted for Vulvar Cellulitis. Pt confirmed demographic and contact information is correct on facesheet. Pt resides with mom and sons. Pt ambulates independently without assistance or DME. Pt is ok with all ADLs. Patient?s pharmacy of choice is [facility] [employer]. Pt named her mom, Odalis Denson medical decision maker if whe is unable. Patient?s choice is to return home upon d/c. Pt stats she has follow up with PCP in 2 weeks. D/C plan: Return home Next of Kin: Evelyne Denson, mom, phone# [phone] PCP: [facility] Address: Correct on facesheet
--- NOTE | 2025-09-20 09:43 | PC.SS ---
Late note 09-19-25: SS met with patient regarding her d/c plan. Pt is alert/oriented. Pt was admitted for Vulvar Cellulitis. Pt confirmed demographic and contact information is correct on facesheet. Pt resides with mom and sons. Pt ambulates independently without assistance or DME. Pt is ok with all ADLs. Patient?s pharmacy of choice is [facility] [employer]. Pt named her mom, Odalis Denson medical decision maker if whe is unable. Patient?s choice is to return home upon d/c. Pt stats she has follow up with PCP in 2 weeks. D/C plan: Return home Next of Kin: Evelyne Denson, mom, phone# [phone] PCP: [facility] Address: Correct on facesheet
== END 2025-09-19 13:28 | disposition home or self-care (01) ==
LOC: SERX 06:33 → SERHOLD 09:11 → S3SX 14:49
PROVIDERS: Nurse Practitioner Family; Physician Assistant; Admitting Provider Obstetrics & Gynecology; Emergency Provider Emergency Medicine; PCP Family Medicine; Visit Provider Obstetrics & Gynecology
PROC: (CPT 57135; principal; 2025-09-18 11:30)
DX: N75.0 Cyst of Bartholin's gland (principal); N76.2 Acute vulvitis; N76.4 Abscess of vulva; F15.20 Other stimulant dependence, uncomplicated
CPT/HCPCS: 56740; 36415; 72192; 80053; 81001; 81025; 85025; 87040; 87070; 87077; 87086; 87186; 87205; 94640; 94664; 96361; 96365; 96366; 96372; 96374; 96375; 96376; 99283; A4217; A4649; G0378; J1100; J1171; J1885; J2250; J2270; J2405; J2470; J2543; J2704; J2765; J3010; J3490; J7030; J7120; A9270

== ENCOUNTER 2025-09-22 18:52 | Inpatient (IN) | payer MEDICAID, SELFPAY ==
[2025-09-22 18:54] VITALS: BMI 31.4
[2025-09-22 19:03] VITALS: BP 119/83; PULSE 91; RESP 18; TEMP 36.8; O2SAT 100
--- NOTE | 2025-09-22 19:03 | EDNOTE_ITS ---
Nausea/Vomit./Diarrhea-RME/HPI General Chief complaint: Nausea/Vomiting/Diarrhea Stated complaint: NAUSEA, CHILLS Time Seen by Provider: 09/22/25 19:05 Arrival date/time: 09/22/25 18:52 RME / HPI RME / HPI Narrative: See [facility] for Dr. Alvarado's HPI documentation. Related Data Home Medications ?Medication ?Instructions ?Recorded ?Confirmed albuterol sulfate 90 mcg/actuation 2 puff inhalation Q 6H PRN 12/23/19 09/18/25 aerosol inhaler Shortness Of Breath Previous Rx's ?Medication ?Instructions ?Recorded acetaminophen 300 mg-codeine 30 mg 1 tab PO TID PRN pa in #20 tabs 04/28/25 tablet amoxicillin 875 mg-potassium 1 tab PO BID 7 days #14 t abs 09/19/25 clavulanate 125 mg tablet docusate sodium 100 mg capsule 100 mg PO QDAY 30 days #30 caps 09/19/25 (Stool Softener) ibuprofen 600 mg tablet 600 mg PO Q6H PRN fever or p ain 10 09/19/25 days #40 tabs metronidazole 500 mg tablet 500 mg PO Q8H 7 days #21 t abs 09/19/25 Allergies Allergy/AdvReac Type Severity Reaction Status Date / Time No Known Allergies Allergy Verified 09/22/25 18:53 Review of Systems Review of Systems Systems Reviewed: All systems reviewed, normal except as documented Past Medical History Past Medical History NEUROLOGIC: Negative Seizures CARDIAC: Negative Cardiac Disorders or Congestive Heart Failure RESPIRATORY: Positive Asthma (asthma w/ inhaler); Negative Chronic Obstructive Pulmonary Disease (COPD) GENITOURINARY: Negative Renal Disease ENDOCRINE: Negative Diabetes Mellitus Type 1 or Diabetes Mellitus Type 2 HEMATOLOGIC: Negative Sickle Cell Disease OTHER HISTORY: Negative Autoimmune Disease or Anesthesia Reactions Family History FAMILY HISTORY: Negative Family Psychiatric Problems, Family Respiratory Disorders, Family Cardiac Disorders, Family Gastrointestinal Problems, Family Cancer, Family Surgery or Family Anesthesia Reaction Surgical History SURGICAL: Positive Section Social History SMOKING STATUS: Current some day smoker SECOND HAND EXPOSURE: Yes ED Exam Narrative Physical exam: See [facility] for Dr. Alvarado's physical exam documentation. Course Quality Measures none Orders Category Date Time Status Bedside COVID-19 Antigen Test NOW Care 09/22/25 19:09 Active Bedside Influenza A&B Antigen Test NOW Care 09/22/25 19:09 Completed COVID-19 Screening Questionnaire NOW Care 09/22/25 22:[address] Screening NOW Care 09/22/25 19:48 Active Decision to Admit X1 Care 09/22/25 22:09 Completed Saline [Insert IV] NOW Care 09/22/25 19:[address] pelvis w con Stat Exams 09/22/25 19:48 Completed XR chest 1V portable Stat Exams 09/22/25 19:10 Completed Beta Hydroxybutyrate Stat Lab 09/22/25 19:20 Completed Bilirubin,Direct Stat Lab 09/22/25 19:20 Completed Blood Culture (Lab) Stat Lab 09/22/25 19:20 Received CBC Stat Lab 09/22/25 19:20 Completed CMP [Comprehensive Metabolic Panel] Stat Lab 09/22/25 19:20 Completed CRP [C-Reactive Protein] Stat Lab 09/22/25 19:20 Completed ESR [Sed Rate (ESR)] Stat Lab 09/22/25 19:20 Completed HCG,Qualitative Serum Stat Lab 09/22/25 19:20 Completed Hemoglobin A1C [Glycohemoglobin w (eAG)] Stat Lab 09/22/25 19:20 Completed Lactate (Lactic Acid) Stat Lab 09/22/25 19:20 Completed Lipase Stat Lab 09/22/25 19:20 Completed Magnesium Stat Lab 09/22/25 19:20 Completed Procalcitonin Stat Lab 09/22/25 19:20 Completed TSH [Thyroid Stimulating Hormone] Stat Lab 09/22/25 19:20 Completed Troponin I Stat Lab 09/22/25 19:20 Completed UA, C/S IF [Urinalysis, C/S if Indicated] Stat Lab 09/22/25 20:14 Completed VBG [Venous Blood Gas] Stat Lab 09/22/25 19:20 Completed DiphenhydrAMINE INJ [Benadryl Inj] Med 09/22/25 20:54 Discontinued 50 mg IVP X1 STA Ketorolac Inj [Toradol Inj] Med 09/22/25 19:09 Discontinued 30 mg IVP X1 ONE MethylPREDNISolone.* [SoluMEDROL Inj] Med 09/22/25 20:54 Discontinued 125 mg IVP X1 ONE Ondansetron Inj [Zofran Inj] Med 09/22/25 19:09 Discontinued 4 mg IVP X1 ONE Sodium Chloride 0.9% 1000 ml [Ns] 1,000 ml Med 09/22/25 19:09 Discontinued IV 999 mls/hr Vancomycin Inj 2,000 mg Med 09/22/25 22:05 Active Sodium Chloride 0.9% 500 ml [Ns] 500 ml IV X1 Vital Signs Vital signs: Vital Signs Temperature 98.2 F 09/22/25 19:03 Pulse Rate 91 09/22/25 19:03 Respiratory Rate 18 09/22/25 19:03 Blood Pressure 119/83 09/22/25 19:03 Pulse Oximetry (%) 100 09/22/25 19:03 Oxygen Delivery Method Room Air 09/22/25 19:03 Nausea/Vomiting/Diarrhea MDM Narrative MDM Narrative:: This section includes all my notes and documentations, including HPI, PE, and ED course. David Alvarado MD HPI: 44-year-old female here with several days of subjective fever and chills and bodyaches and malaise and vomiting and worsening genitalia pain. She was admitted about a week ago with right sided Bartholin cyst with abscess and cellulitis. With no improvement with IV ABX, excision performed by Dr. Reid 4 days ago (09/18/25). No other complaints. ROS: All negative except as documented in HPI. Physical Exam: General: Alert and oriented. In obvious pain. Eyes: Conjunctivae and lids clear. ENT: No nasal congestion. Neck: Supple. Heart: RRR. Lungs: No respiratory distress. Good air movement. No rhonchi, wheezing, rales. Abdomen: Soft and nontender. Normal bowel sounds. No distension. No rebound or guarding. Back: No CVA tenderness. Skin: Warm and dry. Neuro: Alert and oriented X 3. I reviewed all diagnostic test results. My interpretation of the chest x-ray is NAD. My review of the pelvis CT report is: Cellulitis in the labial region, 16 x 12 mm left labial abscess, with cellulitis extending bilaterally in the perineal region. Blood/urine tests remarkable for WBC 15. At this point, diagnoses include: Left genital labial abscess Cellulitis of genitalia/perineum Treatment here included: IVF Zofran 4 mg IV Toradol 30 mg IV Vancomycin through an IV Benadryl 50 mg IV and Solumedrol 125 mg IV (before IV contrast) No significant improvement noted. I discussed the case with Dr. Izquierdo ([employer]). About the presentation and exam and diagnostics and treatments here. And need of further care in the hospital. Will accept the patient. David Alvarado MD Patient data External records reviewed:: [facility] previous records (Per chart review, patient was admitted here on 09/16/25 for bartholin gland cyst.) Clinical information provided by:: patient Social determinants that could affect healthcare access:: none Patient has the following chronic illnesses:: none How is presenting disease/condition affected by chronic disease/condition?: no chronic disease Evaluation data The following diagnostics were reviewed and interpreted by me:: lab results and radiology exam(s) Lab and/or radiology exams considered but not ordered:: none Interpretation Summary: I reviewed all diagnostic test results. My interpretation of the chest x-ray is NAD. My review of the pelvis CT report is: Cellulitis in the labial region, 16 x 12 mm left labial abscess, with cellulitis extending bilaterally in the perineal region. Blood/urine tests remarkable for WBC 15. Medications / Prescriptions Medications / Prescriptions considered but not ordered:: none Medication administrations:: Medication Administration History Acetaminophen (Acetaminophen 325 Mg Tablet) 650 mg PO Q6HR PRN PRN Reason: PAIN SCALE 1-3 (mild Stop: 10/22/25 22:26 Vancomycin HCl 2,000 mg/ (Sodium Chloride) 500 mls @ 150 mls/hr IV X1 ONE Stop: 09/23/25 01:24 Last Admin: 09/22/25 22:55 Dose: 150 mls/hr Documented By: Lactated Ringer's (Lactated Ringers) 1,000 mls @ 125 mls/hr IV .Q8H [facility] Stop: 10/22/25 22:25 Last Admin: 09/22/25 22:54 Dose: 125 mls/hr Documented By: Doxycycline Hyclate 100 mg/ (Sodium Chloride) 100 mls @ 100 mls/hr IV BID [facility] Stop: 09/30/25 08:59 Ketorolac Tromethamine (Ketorolac Inj 30 Mg/Ml Vial) 30 mg IVP Q6HR PRN PRN Reason: PAIN SCALE 4-10(Mod-Sev Stop: 09/27/25 22:26 Ondansetron HCl (Ondansetron Inj 2 Mg/Ml Inj 2 Ml) 4 mg IVP Q6HR PRN; Protocol PRN Reason: NAUSEA OR VOMITING Stop: 10/22/25 22:26 Pharmacy Consult (Vancomycin Pharmacy To Dose 1 Each Each) 1 each IV QDAY TOREY Stop: 10/23/25 08:59 Discontinued Medications Diphenhydramine HCl (Diphenhydramine Inj 50 Mg/Ml Vial) 50 mg IVP X1 STA Stop: 09/22/25 20:55 Last Admin: 09/22/25 20:58 Dose: 50 mg Documented By: ANASTACIO Sodium Chloride (Ns) 1,000 mls @ 999 mls/hr IV .Q1H1M ONE Stop: 09/22/25 20:09 Last Infusion: 09/22/25 21:06 Dose: Infused Documented By: Admin: 09/22/25 19:47 Dose: 999 mls/hr Documented By: ANASTACIO Ketorolac Tromethamine (Ketorolac Inj 30 Mg/Ml Vial) 30 mg IVP X1 ONE Stop: 09/22/25 19:10 Last Admin: 09/22/25 19:47 Dose: 30 mg Documented By: ANASTACIO Methylprednisolone Sodium Succinate (Methylprednisolone Sod Succ 62.5 Mg/Ml 2ml Vial) 125 mg IVP X1 ONE Stop: 09/22/25 20:55 Last Admin: 09/22/25 20:58 Dose: 125 mg Documented By: ANASTACIO Ondansetron HCl (Ondansetron Inj 2 Mg/Ml Inj 2 Ml) 4 mg IVP X1 ONE; Protocol Stop: 09/22/25 19:10 Last Admin: 09/22/25 19:47 Dose: 4 mg Documented By: ANASTACIO Treatment here included: IVF Zofran 4 mg IV Toradol 30 mg IV Vancomycin through an IV Benadryl 50 mg IV and Solumedrol 125 mg IV (before IV contrast) Consultations Consultation(s) initiated? (list below): Yes Consultation #1 (Physician, Specialty, Details): I discussed the case with Dr. Izquierdo, our [employer]. About the presentation and exam and diagnostics and treatments here. And need of further care in the [facility]. Will accept the patient. Diagnosis Nausea Differential Diagnosis: other (Abscess, Cellulitis, Sepsis) Most likely diagnosis given after review of the tests above:: Left genital labial abscess Cellulitis of genitalia/perineum Admission Indicated Admission indicated?: indicated Explain why admission is indicated or not indicated:: Left genital labial abscess Cellulitis of genitalia/perineum Admission Request Was there a request for admission?: Yes Admission Attestation Admission request attestation: I discussed the case with Dr. Izquierdo ([employer]). About the presentation and exam and diagnostics and treatments here. And need of further care in the hospital. Will accept the patient. Disposition Plan Disposition Plan: Admit Discharge Plan Plan Patient Disposition: Admit Acute Care w/in Hospital Problem List Clinical Impression: Left genital labial abscess, Cellulitis of female genitalia
--- NOTE | 2025-09-22 19:10 | XR_ITS ---
EXAMINATION: PA chest single view TECHNIQUE: Upright PA chest single view Date and time: September 22, 2025, 1913 hours INDICATIONS: Shortness of breath 4 days. FINDINGS: Minimal subsegmental atelectasis left midlung Normal heart size No pneumonia or pulmonary edema IMPRESSION: No pneumonia or pulmonary edema
[2025-09-22 19:34] LABS: Base Excess, Venous 2 (-3-3); Lactate (Lactic Acid) 1.0 mMol/L (0.4-2.0); O2 Saturation, Venous 55 % (96-97); PCO2, Venous 46 mmHg (36-56); PO2, Venous 29 mmHg (15-58); pH, Venous 7.39 (7.33-7.66)
[2025-09-22 19:35] VITALS: BP 85/60; PULSE 82; RESP 18; TEMP 37.1; O2SAT 100
[2025-09-22 19:39] LABS: Beta Hydroxybutyrate 0.1 mmol/L (<0.6)
[2025-09-22 19:41] LABS: Basophils # (Auto) 0.1 Thou/mm3 (0.0-0.2); Basophils % (Auto) 1 % (0-2.5); Eosinophils # (Auto) 0.2 Thou/mm3 (0.0-0.5); Eosinophils % (Auto) 1 % (0-10); Hematocrit 37.3 % (36.0-46.0); Hemoglobin 12.1 g/dL (12.0-16.0); Immature Granulocytes Auto 0.18 Thou/mm3 (0.00-0.00); Lymphocytes # (Auto) 3.1 Thou/mm3 (1.0-4.8); Lymphocytes % (Auto) 20 % (10-50); Mean Corpuscular HGB Conc 32.4 g/dl (31.0-37.0); Mean Corpuscular Hemoglobin 30.4 pg (25.0-35.0); Mean Corpuscular Volume 94 fL (80-100); Monocytes # (Auto) 1.2 Thou/mm3 (0.0-0.8); Monocytes % (Auto) 8 % (0-12); Neutrophils # (Auto) 10.4 Thou/mm3 (1.8-7.7); Neutrophils % (Auto) 69 % (37-80); Nucleated Red Blood Cell # 0.00 Thou/mm3 (0.00-0.00); Nucleated Red Blood Cell % 0 /100 WBC (0); Platelet Count 520 Thou/mm3 (140-440); RDW Standard Deviation 42.7 fL (36.4-46.3); Red Blood Count 3.98 Miln/mm3 (4.00-5.20); White Blood Count 15.0 Thou/mm3 (3.6-11.0)
[2025-09-22] MEDS: SODIUM CHLORIDE 0.9% 1000 ML 1,000 ML 999 ML IV (19:47)
[2025-09-22] MEDS: KETOROLAC INJ 30 MG/ML VIAL IVP (19:47)
[2025-09-22] MEDS: ONDANSETRON INJ 2 MG/ML INJ 2 ML 4 MG IVP (19:47)
--- NOTE | 2025-09-22 19:48 | XR_ITS ---
Examination: CT pelvis with intravenous contrast, 2-D sagittal reconstructions. 2-D coronal reconstructions. 3-D reconstructions. Date and time of exam: September 22, 2025, 2103 hours INDICATIONS: Nausea vomiting fever after Bartholin cyst excision 4 days ago CTDI: vol (mGy): 8.08 DLP: (mGycm): 302 Technique: Multiple 1.25 mm axial sections of the pelvis post intravenous administration 60 cc Isovue-370 have been obtained. 2-D sagittal and coronal reconstructions have been obtained. 3-D reconstructions have been obtained. Low dose protocols were performed. One or more of the following dose reduction techniques were used; automated exposure control, adjustment of the mA and/or KV according to patient size, use of iterative reconstruction technique. Findings: Visualized abdominal aorta intact Moderate stool in the colon Normal appendix No pelvic abscess 13 mm involuting right ovarian follicular cyst with mild surrounding free fluid Soft tissue swelling in the labial region, 16 x 12 mm left labial abscess axial image 141 and inflammatory change in the perineum bilaterally axial image 145 IMPRESSION: 13 mm involuting right ovarian cyst with mild surrounding free fluid in the pelvis Cellulitis in the labial region, 16 x 12 mm left labial abscess, axial image 141 with cellulitis extending bilaterally in the perineal region
[2025-09-22 19:54] LABS: Sed Rate (ESR) 25 mm/hr (0-20)
[2025-09-22 19:59] LABS: Glucose Estimated Average 105 mg/dL (80-131); Hemoglobin A1C 5.3 % Hgb (4.8-6.0)
[2025-09-22 20:02] LABS: Alanine Aminotransferase 107 U/L (10-49); Albumin, Serum 4.1 gm/dL (3.5-5.0); Albumin/Globulin Ratio 1.5 (1.2-2.2); Alkaline Phosphatase 114 U/L (46-116); Anion Gap 9 (7-16); Aspartate Amino Transferase 87 U/L (0-34); BUN/Creatinine Ratio 7 Ratio (12-20); Bilirubin,Direct 0.1 mg/dL (0.0-0.3); Bilirubin,Total 0.4 mg/dL (0.3-1.2); Blood Urea Nitrogen 8 mg/dL (9-23); C-Reactive Protein < 0.5 mg/dL (0.0-0.9); Calcium 8.9 mg/dL (8.3-10.6); Calcium (Corrected) 8.9 mg/dL (8.5-10.1); Carbon Dioxide 26.8 mMol/L (20.0-31.0); Chloride 105 mMol/L (98-107); Creatinine (Component) 1.1 mg/dL (0.6-1.3); Estimated Creatinine Clearance 61.2 mL/min (>60); Globulin 2.8 gm/dL (2.3-3.5); Glucose 106 mg/dL (74-106); Lipase 27 U/L (12-53); Magnesium 2.0 mg/dL (1.6-2.6); Osmolality,Calculated 279 (275-295); Potassium 4.6 mMol/L (3.4-5.1); Sodium 141 mMol/L (136-145); Thyroid Stimulating Hormone 0.66 uIU/mL (0.55-4.78); Total Protein 6.9 gm/dL (5.7-8.2); Troponin I < 0.002 ng/mL (0.0-0.045); eGFR > 60 See Note
[2025-09-22 20:03] LABS: Procalcitonin 0.06 ng/ml (0.0-0.49)
[2025-09-22 20:06] LABS: HCG,Qualitative Serum Negative
[2025-09-22 20:35] LABS: Collection Type, Urine Clean Catch
[2025-09-22 20:43] LABS: Bilirubin,Urine Negative (Negative); Blood,Urine 2+ (Negative); Clarity,Urine Clear (Clear/Hazy); Color,Urine Colorless (Lt Yel-Yel); Culture Indicated,Urine Not Indicated; Glucose, Urine Negative (Negative); Ketones,Urine Negative (Negative); Leukocyte Esterase,Urine Positive (Negative); Nitrite,Urine Negative (Negative); PH,Urine 7.0 (5.0-7.0); Protein,Urine Negative (Neg - Trace); RBC,Urine 2 /hpf (0-3); Specific Gravity,Urine 1.006 (1.001-1.035); Squamous Epithelial Cell,Urine 3 /hpf (0-5); Urobilinogen,Urine Negative mg/dL (0.0-1.0); WBC,Urine 4 /hpf (0-5)
[2025-09-22] MEDS: MethylPREDNISolone SOD SUCC 62.5 MG/ML 2ML VIAL 125 MG IVP (20:58)
[2025-09-22] MEDS: RINGERS LACTATED 1000 ML 1,000 ML 125 ML IV (22:54)
[2025-09-22] MEDS: Vancomycin Inj 2,000 MG in SODIUM CHLORIDE 0.9% 500 ML 500 ML 150 MG IV (22:55)
[2025-09-22 23:09] VITALS: BP 106/67; PULSE 66; RESP 18; O2SAT 96
[2025-09-23] VITALS: BP 101/61; PULSE 68; RESP 17; TEMP 36.4; O2SAT 95; BMI 30.8
[2025-09-23 04:00] VITALS: BP 95/66; PULSE 77; RESP 18; TEMP 36.7; O2SAT 95
[2025-09-23] MEDS: RINGERS LACTATED 1000 ML 1,000 ML 125 ML IV ×2 (07:58→14:13)
[2025-09-23 08:00] VITALS: BP 103/60; PULSE 78; RESP 17; TEMP 36.8; O2SAT 97
[2025-09-23] MEDS: DOXYCYCLINE INJ 100 MG in SODIUM CHLORIDE 0.9% (POP) 100 ML IV ×2 (08:01→20:08)
[2025-09-23] MEDS: VANCOMYCIN/NS 1 GM IVPB 200 ML IV ×2 (09:35→22:00)
[2025-09-23 12:00] VITALS: BP 98/58; PULSE 79; RESP 17; TEMP 36.3; O2SAT 97
[2025-09-23] MEDS: ACETAMINOPHEN 325 MG TABLET 650 MG PO (12:06)
[2025-09-23 16:00] VITALS: BP 95/59; PULSE 86; RESP 17; TEMP 36.6; O2SAT 100
--- NOTE | 2025-09-23 19:43 | PC.NURSE ---
Patient was concerned regarding bleeding from vaginal area when having a bowel movement. Upon assessment, it was noticed that patient was indeed bleeding at the vaginal area. Lucian's spouse is at bedside. Dr. Reid was contacted regarding situation. Per Dr. Reid, there is no need to be concerned as the bleeding can be from when the patient was having a bowel movement. Patient was notified. Patient was also notified that Dr. Reid would be coming in the morning to come see her.
[2025-09-23 20:00] VITALS: BP 106/63; PULSE 74; RESP 21; TEMP 36.5; O2SAT 100
[2025-09-23] MEDS: KETOROLAC INJ 30 MG/ML VIAL IVP (20:07)
[2025-09-24] VITALS: BP 86/57; PULSE 80; RESP 19; TEMP 36.7; O2SAT 97
[2025-09-24 04:00] VITALS: BP 92/58; PULSE 72; RESP 18; TEMP 36.3; O2SAT 97
[2025-09-24 06:27] LABS: Basophils # (Auto) 0.1 Thou/mm3 (0.0-0.2); Basophils % (Auto) 1 % (0-2.5); Eosinophils # (Auto) 0.1 Thou/mm3 (0.0-0.5); Eosinophils % (Auto) 1 % (0-10); Hematocrit 29.7 % (36.0-46.0); Hemoglobin 9.7 g/dL (12.0-16.0); Immature Granulocytes Auto 0.19 Thou/mm3 (0.00-0.00); Lymphocytes # (Auto) 4.6 Thou/mm3 (1.0-4.8); Lymphocytes % (Auto) 32 % (10-50); Mean Corpuscular HGB Conc 32.7 g/dl (31.0-37.0); Mean Corpuscular Hemoglobin 30.8 pg (25.0-35.0); Mean Corpuscular Volume 94 fL (80-100); Monocytes # (Auto) 1.1 Thou/mm3 (0.0-0.8); Monocytes % (Auto) 7 % (0-12); Neutrophils # (Auto) 8.6 Thou/mm3 (1.8-7.7); Neutrophils % (Auto) 59 % (37-80); Nucleated Red Blood Cell # 0.00 Thou/mm3 (0.00-0.00); Nucleated Red Blood Cell % 0 /100 WBC (0); Platelet Count 392 Thou/mm3 (140-440); RDW Standard Deviation 43.7 fL (36.4-46.3); Red Blood Count 3.15 Miln/mm3 (4.00-5.20); White Blood Count 14.7 Thou/mm3 (3.6-11.0)
[2025-09-24 07:49] VITALS: BP 107/68; PULSE 64; RESP 18; TEMP 36.3; O2SAT 97
[2025-09-24] MEDS: DOXYCYCLINE INJ 100 MG in SODIUM CHLORIDE 0.9% (POP) 100 ML IV (08:20)
[2025-09-24] MEDS: RINGERS LACTATED 1000 ML 1,000 ML 125 ML IV (08:21)
[2025-09-24 10:19] LABS: Alanine Aminotransferase 75 U/L (10-49); Albumin, Serum 3.2 gm/dL (3.5-5.0); Albumin/Globulin Ratio 1.5 (1.2-2.2); Alkaline Phosphatase 77 U/L (46-116); Anion Gap 9 (7-16); Aspartate Amino Transferase 51 U/L (0-34); BUN/Creatinine Ratio 8 Ratio (12-20); Bilirubin,Total 0.3 mg/dL (0.3-1.2); Blood Urea Nitrogen 8 mg/dL (9-23); Calcium 8.0 mg/dL (8.3-10.6); Calcium (Corrected) 8.6 mg/dL (8.5-10.1); Carbon Dioxide 25.9 mMol/L (20.0-31.0); Chloride 109 mMol/L (98-107); Creatinine (Component) 1.0 mg/dL (0.6-1.3); Estimated Creatinine Clearance 66.7 mL/min (>60); Globulin 2.2 gm/dL (2.3-3.5); Glucose 103 mg/dL (74-106); Osmolality,Calculated 285 (275-295); Potassium 3.9 mMol/L (3.4-5.1); Sodium 144 mMol/L (136-145); Total Protein 5.4 gm/dL (5.7-8.2); Vancomycin,Trough 15.5 mcg/mL (5.0-10.0); eGFR > 60 See Note
[2025-09-24] MEDS: VANCOMYCIN/NS 1 GM IVPB 200 ML IV (11:59)
[2025-09-24 12:00] VITALS: BP 112/66; PULSE 68; RESP 18; TEMP 36.3; O2SAT 97
--- NOTE | 2025-09-24 15:24 | ESDS_ITS ---
Planned Discharge Date 09/24/25 DS: Providers Provider Date of admission: 09/22/25 22:21 Primary care physician: Rosy John NP Admitting Provider: Bonnie Izquierdo MD ([facility]) Attending Provider on Admission: German Reid MD Consults: 09/23/25 00:13 Referral Infection Control Routine Comment: Reason for Infection Control Referral: Readmitted within 30 days Attending Provider on DC: Dania Knowles MD Discharging Provider: Dania Knowles MD DS: Diagnosis Discharge Diagnosis (1) Vulvar cellulitis: Status: Acute (2) Bartholin gland cyst: Status: Acute Problem List Completed Was Problem List Reviewed/Reconciled?: Yes Hospital Course Hospital Course Hospital course: Trinh is a 44yo female s/p excision of right Bartholin's cyst and gland to treat right Bartholin abscess and vulvar cellulitis on 09/18 with unremitting n/v and malaise with re-admission after midnight on 09/23. She was discharged with an oral course of augmentin and flagyl, was prescribed zofran in clinic but became very nervous when she continued to dry heave, so presented to the ER and was re-admitted. She was started on IV vancomycin and IV doxycycline. 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 She feels ready for discharge home now. She is ambulating without lightheadedness, tolerating regular diet no n/v, spontaneously voiding without issue. She has no chest pain or shortness of breath. No fevers or chills. Minimal discomfort. Vitals normal, benign exam. Hemodynamically stable. WBC count has decreased from 21.4 on 09/19 to 14.7 today. Blood cultures done 09/22 are negative after 24hr. Exam shows resolution of cellulitis. Area of excision healing well. Status at Discharge Functional status at discharge: independent ambulation Overall status at discharge: patient is back to baseline Time Spent with Patient Time attestation: Total time spent providing and/or coordinating discharge services: Time spent: Greater than 30 minutes Exam - [employer] Vital Signs Temp Pulse Resp BP Pulse Ox O2 Del Method 97.4 F 68 18 112/66 97 Room Air 09/24/25 12:00 09/24/25 12:00 09/24/25 12:09/24/25 12:09/24/25 12:09/24/25 12:00 Routine Exam Genitals image: 2 1. Palpable, soft, 4cm Bartholin cyst. No pain with palpation. 2. Healing area from Bartholin abscess excision. With compression, small amount of dark blood emanates from the area, but no active bleeding. No erythema. Appears to be healing appropriately. Comments: Photo on patient's phone showed significant edema and erythema of right vulva at the onset of her symptoms. The edema and erythema have resolved. Discharge Plan Plan Patient Disposition: HOME (Self Care) Patient condition on transfer: Stable Prescriptions/Referrals Prescriptions/Med Rec: New doxycycline hyclate 100 mg tablet 100 mg PO BID Qty: 14 0RF Continued albuterol sulfate 90 mcg/actuation HFA aerosol inhaler 2 puff IH Q6H PRN (Reason: Shortness Of Breath) Patient Comments: not taking Referrals: Rosy John NP [Primary Care Provider] Patient/Caregiver Discharge Instructions Discharge Activity: activity as tolerated and other Other Discharge Activity Instructions:: vaginal rest until cleared by Dr. Reid Other Discharge Diet Instructions: regular Education Materials: Bartholin Cyst and Abscess Print Language: Greek Activity Restrictions/Additional Instructions: Take full course of doxycycline. Discontinue previously prescribed antibiotics. Ok to take diflucan that was previously prescribed. Take zofran as needed for nausea as previously prescribed. Take tylenol and/or motrin for discomfort as needed. Follow up with Dr. Reid within 7 days for post-op visit and to keep close eye on residual Bartholin cyst. Stand Alone Forms: [facility]a Award Info., Patient Portal Info Letter Discharge Order Discharge Orders: Discharge (Routine); Ordered 09/24/25 Ordered By: Dania Knowles
[2025-09-24 16:00] VITALS: BP 121/86; PULSE 84; RESP 18; TEMP 36.3; O2SAT 97
--- NOTE | 2025-09-24 16:24 | ESHP_ITS ---
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 She was discharged with an oral course of augmentin and flagyl, was prescribed zofran in clinic but became very nervous when she continued to dry heave and couldn't tolerate oral intake. Her vulvar pain is minimal at this point, not taking any narcotic for the pain. No concern for increased swelling/redness/pain of the vulva. She states she doesn't feel well and she is worried. Review of Systems Review of Systems Narrative Review of Systems: Review of Systems Systems Reviewed: All systems reviewed, normal except as documented Constitutional Constitutional: Endorses body ache(s), endorses chills, endorses subjective fever(s) and endorses headache(s) ENT Ears, Nose, Mouth, and Throat: Denies headache(s) and Denies vertigo Cardiovascular Cardiovascular: Denies chest pain, Denies palpitations, Denies dyspnea and Denies syncope Respiratory Respiratory: Denies cough, Denies dyspnea Gastrointestinal Gastrointestinal: Denies nausea and Denies vomiting Neurologic Neurologic: Denies convulsions, Denies headache(s), Denies other visual disturbances, Denies syncope and Denies vertigo Past Medical History Family History OTHER FAMILY HX: non-contributory Surgical History OTHER SURGICAL HX: history of section, history of Bartholin gland cyst surgery Social History SOCIAL: Good family support. +tobacco use. Past Medical History Comments PMH COMMENT: Multiple episodes of Bartholin gland cysts and abscesses, bilaterally. 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 Temp Pulse Resp BP Pulse Ox O2 Del Method 97.4 F 84 18 121/86 H 97 Room Air 09/24/25 16:00 09/24/25 16:00 09/24/25 16:00 09/24/25 16:00 09/24/25 16:00 09/24/25 16:00 Narrative Exam General: well developed, well nourished, no acute distress, conversant Cardiac: normal heart rate Lungs: breathing without distress Abdomen: soft, non-tender, no rebound or guarding Extremities: no edema BLE Vulva healing appropriately after right Bartholin gland/cyst excision 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 - Results Labs 09/24/25 05:32 09/24/25 09:13 Labs: Short CBC 09/24/25 Range/Units 05:32 WBC 14.7 H (3.6-11.0) Thou/mm3 Hgb 9.7 L D (12.0-16.0) g/dL Hct 29.7 L (36.0-46.0) % Plt Count 392 D (140-440) Thou/mm3 BMP 09/24/25 09:13 Sodium 144 Potassium 3.9 D Chloride 109 H Carbon Dioxide 25.9 BUN 8 L Creatinine 1.0 Glucose 103 Calcium 8.0 L Liver Function 09/24/25 Range/Units 09:13 Total Bilirubin 0.3 (0.3-1.2) mg/dL AST 51 H (0-34) U/L ALT 75 H (10-49) U/L Alkaline Phosphatase 77 D (46-116) U/L Albumin 3.2 L D (3.5-5.0) gm/dL ABG Interpretation ABG results: 09/22/25 19:20 VBG pH 7.39 VBG pCO2 46 VBG pO2 29 VBG Base Excess 2 Impressions Impression: Date of Service: 09/22/25 Procedure(s): CT pelvis w con Accession Number(s): [id number] cc: David Alvarado MD; Crow Condon MD; Rosy John NP~ Examination: CT pelvis with intravenous contrast, 2-D sagittal reconstructions. 2-D coronal reconstructions. 3-D reconstructions. Date and time of exam: September 22, 2025, 2103 hours INDICATIONS: Nausea vomiting fever after Bartholin cyst excision 4 days ago CTDI: vol (mGy): 8.08 DLP: (mGycm): 302 Technique: Multiple 1.25 mm axial sections of the pelvis post intravenous administration 60 cc Isovue-370 have been obtained. 2-D sagittal and coronal reconstructions have been obtained. 3-D reconstructions have been obtained. Low dose protocols were performed. One or more of the following dose reduction techniques were used; automated exposure control, adjustment of the mA and/or KV according to patient size, use of iterative reconstruction technique. Findings: Visualized abdominal aorta intact Moderate stool in the colon Normal appendix No pelvic abscess 13 mm involuting right ovarian follicular cyst with mild surrounding free fluid Soft tissue swelling in the labial region, 16 x 12 mm left labial abscess axial image 141 and inflammatory change in the perineum bilaterally axial image 145 IMPRESSION: 13 mm involuting right ovarian cyst with mild surrounding free fluid in the pelvis Cellulitis in the labial region, 16 x 12 mm left labial abscess, axial image 141 with cellulitis extending bilaterally in the perineal region Assessment and Plan Assessment and plan (1) Vulvar cellulitis: Status: Acute Assessment and plan: Trinh is a 44yo female s/p excision of right Bartholin's cyst and gland to treat right Bartholin abscess and vulvar cellulitis on 09/18 as well as IV abx therapy, discharged on 09/19, re-presenting to ER with unremitting n/v, malaise, subjective fever/chills. She was discharged with an oral course of augmentin and flagyl, was prescribed zofran in clinic but became very nervous when she continued to dry heave and couldn't tolerate oral intake. Her vulvar pain is minimal at this point, not taking any narcotic for the pain. CT imaging shows cellulitis in labial region, [id number] left labial abscess with cellulitis extending bilaterally in the perineal region . WBC 15. Vitals wnl, afebrile. Plan: -Admit for IV abx therapy and anti-emetics -Diet as tolerated -Vancomycin IV and Doxycyclin IV -Zofran 4mg IV Q6hr prn n/v -CBC and CMP daily -Will closely observe (2) Bartholin gland cyst: Status: Acute Quality Measures Quality Measures none
== END 2025-09-24 16:13 | disposition home or self-care (01) | DRG 532 ==
LOC: SERX 22:11 → SERHOLD 23:19 → S3NX 23:46
PROVIDERS: Admitting Provider Obstetrics & Gynecology; Emergency Provider Emergency Medicine; PCP Nurse Practitioner Family; Visit Provider Obstetrics & Gynecology
DX: N75.0 Cyst of Bartholin's gland (principal); N76.4 Abscess of vulva; F17.200 Nicotine dependence, unspecified, uncomplicated; N76.2 Acute vulvitis; N83.01 Follicular cyst of right ovary; Z98.891 History of uterine scar from previous surgery
CPT/HCPCS: 36415; 71045; 72193; 80053; 80202; 81001; 82010; 82248; 82803; 83036; 83605; 83690; 83735; 84145; 84443; 84484; 84703; 85025; 85652; 86140; 87040; 87081; 87502; 87635; 96361; 96374; 96375; 99284; A4649; J1200; J1885; J2405; J2919; J3373; J3490; J7030; J7120; J7999; Q9967; A9270